=== PATIENT | female | born 1970 | race Two or more races ===

== ENCOUNTER 2017-09-10 17:09 | Emergency (ER) | payer OTHER ==
[2017-09-10 18:04] VITALS: BP 158/100
--- NOTE | 2017-09-10 20:55 | UC ---
Respiratory Complaint HPI - HPI Summary HPI Summary: cough, head congestion and right ear ache began this morning - History of Current Complaint Chief Complaint: UCGeneralIllness Stated Complaint: COUGH, EARACHE, AND CHEST CONGESTION Time Seen by Provider: 09/10/17 20:42 Hx Obtained From: Patient Hx Last Menstrual Period: 09/08/16 ?: No Onset/Duration: Sudden Onset, Lasting Hours - 12 Timing: Constant Severity Initially: Moderate Severity Currently: Moderate Pain Intensity: 9 Character: Cough: Productive Aggravating Factors: Nothing Alleviating Factors: Other - vapor/mist Associated Signs And Symptoms: Positive: URI, Nasal Congestion - Allergies/Home Medications Allergies/Adverse Reactions: Allergies Allergy/AdvReac Type Severity Reaction Status Date / Time MS Eggs or Egg-derived Allergy Nausea And Verified 11/07/14 13:21 Products Vomiting [Eggs or Egg-derived Products] metal Allergy Rash Uncoded 11/07/14 13:21 Home Medications: Home Medications Albuterol HFA INHALER* [Ventolin HFA Inhaler*] 1 puff INH DAILY 09/10/17 [ History Confirmed 09/10/17] Fluticasone NASAL SPRAY 50MCG* [Flonase NASAL SPRAY 50MCG*] 2 spray BOTH NARES DAILY 09/10/17 [History Confirmed 09/10/17] Mometasone 110 MCG MDI * [Asmanex 110 MCG MDI *] 1 puff INH DAILY 09/10/17 [ History Confirmed 09/10/17] PMH/Surg Hx/FS Hx/Imm Hx Previously Healthy: No Respiratory History: Asthma - Surgical History Surgical History: Yes Surgery Procedure, Year, and Place: carpal tunnel 2007 - Family History Known Family History: Positive: None - Social History 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 Lives: With Family Alcohol Use: None Substance Use Type: Marijuana Smoking Status (MU): Never Smoked Tobacco - Immunization History Most Recent Influenza Vaccination: not 2016/2017 Review of Systems Constitutional: Negative Skin: Negative Eyes: Negative ENT: Ear Ache - right Respiratory: Cough Cardiovascular: Negative Gastrointestinal: Negative Genitourinary: Negative Motor: Negative Neurovascular: Negative Musculoskeletal: Negative Neurological: Headache Psychological: Negative Is Patient Immunocompromised?: No All Other Systems Reviewed And Are Negative: Yes Physical Exam Triage Information Reviewed: Yes Appearance: Well-Appearing, No Pain Distress, Well-Nourished Vital Signs: Initial Vital Signs Temp 98.0 F 09/10/17 17:58 Pulse 83 09/10/17 17:58 Resp 18 09/10/17 17:58 BP 158/100 09/10/17 17:58 Pulse Ox 100 09/10/17 17:58 Vital Signs Reviewed: Yes Eye Exam: Normal Eyes: Positive: Conjunctiva Clear ENT Exam: Normal ENT: Positive: Normal ENT inspection, Hearing grossly normal, Pharynx normal, TMs normal, Uvula midline. Negative: Nasal congestion, Nasal drainage, Tonsillar swelling, Tonsillar exudate, Trismus, Muffled voice, Hoarse voice, Dental tenderness, Sinus tenderness Dental Exam: Normal Neck exam: Normal Neck: Positive: Supple, Nontender, No Lymphadenopathy Respiratory Exam: Normal Respiratory: Positive: Chest non-tender, Lungs clear, Normal breath sounds, No respiratory distress, No accessory muscle use Cardiovascular Exam: Normal Cardiovascular: Positive: RRR, No Murmur, Pulses Normal, Brisk Capillary Refill Musculoskeletal Exam: Normal Musculoskeletal: Positive: Strength Intact, ROM Intact, No Edema Neurological Exam: Normal Neurological: Positive: Alert, Muscle Tone Normal Psychological Exam: Normal Skin Exam: Normal UC Diagnostic Evaluation - Laboratory O2 Sat by Pulse Oximetry: 100 Diagnostic Studies Comment: influenza A/B (-) Respiratory Course/Dx - Course Course Of Treatment: tylenol, ibuprofen, mucinex, humidification, increase fluids, follow bp with pcp start antibiodics should symptoms worsen or fail to improve - Differential Dx/Diagnosis Provider Diagnoses: URI Discharge - Discharge Plan Condition: Stable Disposition: HOME Prescriptions: Azithromycin TAB* [Zithromax TAB (Z-GEOVANNY) 250 mg #6 tabs] 2 tab PO .TODAY, THEN 1 DAILY #1 geovanny Patient Education Materials: Upper Respiratory Infection (ED), Hypertension (ED ) Forms: *Work Release Referrals: Rosario Armenta MD [Primary Care Provider] - 1 Week Additional Instructions: 1. I believe the symptoms you are having a caused by a virus . They are best treated with medications like tylenol, ibuprofen and mucinex. If you do not start to feel better in a couple of days or if you feel worse go ahead and start the antibiodic. 2. Your blood pressure to today is a little high---Please get rechecked and follow with your primary care doctor
== END 2017-09-10 21:35 | disposition home or self-care (01) ==
LOC: UCEAST 17:09
DX: J06.9 Acute upper respiratory infection, unspecified (principal); J45.909 Unspecified asthma, uncomplicated
CPT/HCPCS: 87502; 99212; G0463

== ENCOUNTER 2018-02-12 07:15 | Day surgery (SDC) | payer OTHER ==
--- NOTE | 2018-02-01 23:13 | HP ---
CC: Rosario Armenta MD * ADMISSION HISTORY AND PHYSICAL: DATE OF ADMISSION: 02/12/18 - [facility] ATTENDING SURGEON: Tia Hurtado MD * (ERIC Craft, dictating) CHIEF COMPLAINT: Phyllodes tumor, right breast. HISTORY OF PRESENT ILLNESS: This is a 47-year-old female, who underwent routine annual screening mammography on 10/21/17. The patient had not noticed any changes in the breasts and she does do a fairly regular self-exam. She specifically denies any masses, lumps, skin changes, or nipple discharge. The mammogram showed a new rounded density in the right breast, upper, slightly inner quadrant at the 12 to 1 o'clock position, 5 cm from the nipple. This measured up to 0.8 cm in size and was confirmed by ultrasound. An ultrasound- guided biopsy was performed on 10/29/17 showing a benign phyllodes tumor. There is no family history of breast or ovarian cancer. The remainder of her breast history is outlined in her chart record. She was seen in the office by Dr. Hurtado on 01/19/18 at which time, breast exam was normal. There were no skin or nipple changes and no palpable lymphadenopathy. Dr. Hurtado discussed with her the indications for surgery, the risks, benefits, and alternatives and she would like to proceed as scheduled with excision of phyllodes tumor of the right breast (following needle localization). PAST MEDICAL HISTORY: 1. Allergies. 2. Asthma. 3. Obesity. 4. History of iron deficiency anemia. PAST SURGICAL HISTORY: Previous surgeries include: 1. Right carpal tunnel release. 2. Excision of a left ingrown toenail. CURRENT MEDICATIONS: 1. Flonase 1 spray each nostril once daily p.r.n. 2. Asmanex metered dose inhaler 2 puffs b.i.d. 3. Ketotifen ophthalmic drops 0.025% once daily p.r.n. for allergies. 4. Xyzal 5 mg once daily p.r.n. for allergies. 5. Ventolin MDI 2 puffs q.6 hours p.r.n. asthma (has not required recently). 6. Triamcinolone 0.1% cream b.i.d. p.r.n. 7. Ferrous gluconate 325 mg once daily. 8. Vitamin B12 1000 mcg once daily. 9. Multivitamin once daily. ALLERGIES: Drug allergies, IBUPROFEN (GI side effects), BERNARDINO (rash). FAMILY HISTORY: Negative for anesthesia problems, bleeding, or clotting disorders. SOCIAL HISTORY: The patient is , though her is currently in [place]. She has 2 sons, who live with her. 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 She denies use of tobacco, alcohol, or recreational drugs. REVIEW OF SYSTEMS: General: No recent constitutional symptoms or acute illnesses. Her weight has been relatively stable. HEENT: No problems reported. Cardiovascular: No chest pain, palpitations, history of hypertension , or heart murmur. Respiratory: No recent exacerbations of her asthma. No cough or shortness of breath. GI: No problems reported. She has never had a screening colonoscopy. : No problems reported. SUPERINTENDENT METERS: She was evaluated recently by Dr. Armenta for vaginal discharge and was prescribed metronidazole vaginal gel, though has not decided if she is going to use it. Most recent pelvic exam and Pap smear in 2017 reportedly normal. Endocrine: No diabetes or thyroid dysfunction though I did note a hemoglobin A1c of 6.0 on recent lab work. Musculoskeletal: Recent left foot pain and some symptoms consistent with osteoarthritis. Neuro/Psych: She does have a history of claustrophobia. Remaining review of systems is negative. PHYSICAL EXAMINATION GENERAL: Well-nourished, obese female, in no acute distress. VITAL SIGNS: Height 5 feet, 1 inch, weight 194 pounds, blood pressure 118/72, pulse 62, respirations 18. HEENT: Pupils equal and round, reactive. EOMs intact. No conjunctival pallor or scleral icterus. Oropharynx: Teeth in good repair. No intraoral lesions. NECK: No thyromegaly, masses, or supraclavicular lymphadenopathy. LUNGS: Clear to auscultation. No rales or wheezes. HEART: Regular rate and rhythm. No murmur noted. BREASTS: Exam not done today (see above for Dr. Hurtado's exam). ABDOMEN: Soft, nontender to palpation. No palpable masses or organomegaly. GENITALIA: Not done. RECTAL: Not done. BACK: No spinous process or CVA tenderness. EXTREMITIES: No edema. NEUROLOGICAL: Grossly intact. SKIN: Warm and dry. No suspicious rashes or lesions. IMPRESSION: Phyllodes tumor, right breast. PLAN: Excision of phyllodes tumor, right breast (after needle localization). ERIC CRAFT [id number]/[facility] #: [id number] [facility]
[~2018-02-12 07:15] MED LIST: Buffered Lidocaine 0.9% SYRIN* 5 ML/SYR SYRINGE INTRADERM ONE
[2018-02-12] MEDS ORDERED: Lidocaine 2.5%/Prilocain 2.5%* 5 GM TUBE ONE (07:30)
[2018-02-12] MEDS ORDERED: ceFAZolin 2 GM PREMIX (*) 2 GM/50 ML BAG IVPB ONE (07:31)
--- NOTE | 2018-02-12 09:07 | RAD ---
CLINICAL HISTORY: Status post needle wire localization of the right breast COMPARISON: Ultrasound dated October 29, 2017, mammogram dated October 21, 2017 TECHNIQUE: Right craniocaudal and lateral-medial mammograms were obtained. A computer-aided detection system (CAD) was also used for evaluation. FINDINGS: BREAST COMPOSITION: 2 There are scattered areas of fibroglandular density MASSES: Again noted is nodular density of the central/upper right breast. CALCIFICATIONS: There are no suspicious calcifications. ASYMMETRY: There are no suspicious asymmetries. ARCHITECTURAL DISTORTION: There is no architectural distortion. SKIN: There is no skin thickening. LYMPH NODES: There is no lymphadenopathy. SPECIAL CASES: None OTHER FINDINGS: A hook wire is noted, traversing the nodule, with the base of the neck of the wire within the nodule. Images are labeled and marked. ASSESSMENT: STATUS POST ULTRASOUND-GUIDED NEEDLE/WIRE LOCALIZATION OF THE RIGHT BREAST RECOMMENDATION: HISTOLOGY IS PENDING No BIRADS code needed No Code Needed
--- NOTE | 2018-02-12 10:03 | RAD ---
PROCEDURE: Ultrasound-guided needle/wire localization of the right breast PREOPERATIVE DIAGNOSIS: Phyllodes tumor of the right breast POSTOPERATIVE DIAGNOSIS: Same COMPARISONS: October 29, 2017, October 21, 2017 OCCUPATIONAL HEALTH PHYSIOTHERAPIST: Leslie Long MD ANESTHESIA: Local anesthesia with 1% lidocaine without epinephrine FLUOROSCOPY TIME: None CONTRAST: None PROCEDURAL NARRATIVE: The procedure was explained to the patient who indicated understanding. Written and verbal informed consent was obtained. An opportunity was given to ask and answer questions. This included discussing the patient's reported history of metal allergy. It was confirmed that there was no history of anaphylaxis and it was explained that there are no alternative needle/wire localization systems available for use, and that the indwelling wire would be removed the same day during surgery, and that the alternatives would be to do no surgery or nonguided surgery. The patient indicated that she was willing to proceed with the needle/wire localization procedure despite her reported history of metallic allergy. A timeout was performed. The patient was prepped and draped in the usual sterile fashion. Using ultrasound guidance, a needle/wire localization system was advanced to the target lesion in the right breast. Once position was confirmed, the needle was removed using pin pull technique. Post localization mammography was performed. The wound was dressed and the wire was secured. FINDINGS: Again noted is a hypoechoic nodule of the right breast in the approximately 12:00 position corresponding to the findings noted on previous ultrasound. Post localization images demonstrate the hookwire traversing the nodule at the level of the wire neck. SPECIMENS: Pending COMPLICATIONS: None DISPOSITION: The patient tolerated the procedure well, without complications during or immediately following the procedure. The patient was sent to the surgical suite in good, stable condition. IMPRESSION: 1. TECHNICALLY SUCCESSFUL, UNCOMPLICATED, ULTRASOUND-GUIDED LOCALIZATION OF THE RIGHT BREAST FOR THE PURPOSES OF EXCISIONAL BIOPSY. 2. SPECIMEN IS PENDING
[2018-02-12] MEDS ORDERED: fentaNYL* 50 MCG/ML 2 ML VIAL (100 MCG VIAL) ONE (10:47)
[2018-02-12] MEDS ORDERED: Midazolam* 1 MG/ML 5 ML VIAL (5 MG) ONE (10:47)
[2018-02-12] MEDS ORDERED: Bupivacaine 0.5% PF 10 ML VIAL INJ ONE (11:15)
[2018-02-12] MEDS ORDERED: Lidocaine 1% INJ* 10 MG/ML 30 ML SDV ONE (11:15)
[2018-02-12] MEDS ORDERED: Lidocaine 1% MPF wEPI 200,000* 30 ML SDV ONE (11:26)
[2018-02-12] MEDS ORDERED: Propofol* 10 MG/ML 20 ML BTL IV PUSH ONE ×2 (11:49→12:33)
[2018-02-12] MEDS ORDERED: Ondansetron INJ* 2 MG/ML VIAL IV PRN (12:11)
[2018-02-12] MEDS ORDERED: oxyCODONE/Acetamin 5/325 MG* TAB PO PRN (12:11)
[2018-02-12] MEDS ORDERED: Acetaminophen TAB* 325 MG PO PRN (12:11)
[2018-02-12] MEDS ORDERED: Naloxone* 0.4 MG/ML 1 ML VIAL IV PRN (12:11)
[2018-02-12] MEDS ORDERED: HYDROcodone/ACETAMIN 5-325 MG* 1 TAB PO PRN (13:18)
--- NOTE | 2018-02-12 13:25 | BRIEFOPN ---
Brief Operative Note - Surgery Procedures: Procedures ANESTH INJECT-SPIN CANAL (02/24/97) ARTIF RUPT MEMBRANES NEC (03/21/01) EKG (03/21/01) MONITORING NOS (02/24/97) MANUAL REMOVAL-PLACENTA (03/21/01) REPAIR OB LACERATION NEC (03/21/01) 02/12/18 Op Note Pre-op dx: right breast abnormality post-op dx: same Procedure: needle localization of right breast abnormality. Surgeon: Bryant Asst: none Anesth: local-MAC EBL: 25 cc SCDs on during surgery Abx: given pre-op Pt. tolerated procedure well and was transferred to in a stable condition. CLFoster
[2018-02-12 14:10] VITALS: BP 128/88
--- NOTE | 2018-02-15 03:50 | OP ---
CC: Dr. Rosario Armenta.* DATE OF OPERATION: 02/12/18 - SDS DATE OF : 70 SURGEON: Tia Hurtado MD DREDGEMASTER: There was no front office assistant for this case. PRE-OP DIAGNOSIS: Right breast abnormality POST-OP DIAGNOSIS: Right breast abnormality OPERATIVE PROCEDURE: Needle location excision of right breast abnormalities INDICATIONS: Ms. Martini is a 47-year-old woman with recently identified phyllodes tumor in the right breast as identified by ultrasound. She was therefore prepared for surgery. DESCRIPTION OF PROCEDURE: She underwent needle localization on the morning of surgery and then was brought to the operating room. She was placed on the OR table in the supine position and given IV sedation. The right breast was prepped and draped in the usual sterile fashion taking care not to dislodge the localizing wire. After infiltrating with local anesthetic, a curvilinear elliptical incision encompassing the wire was made, subcutaneous tissue was then divided with electrocautery to excise a massive tissue from around the tip of the wire. The specimen was sent to radiology and the report came back eventually that the lesion was at the very edge of the specimen, so additional tissue was taken, this was done after the wound had been irrigated with saline and cauterized extensively. So, once the additional tissue was removed and marked in the usual fashion and handed off as a specimen. Hemostasis was again achieved with electro-cautery. Additional clips were placed in the cavity to master its confluence and then closure was accomplished. This was done with 3-0 Vicryl in the subcutaneous layer. The skin was closed with 4-0 Prolene in the subcuticular fashion. Steri-Strips and a dry sterile dressing were applied. All sponge and instrument counts were correct. The patient tolerated the procedure well and was transferred to Recovery in a stable condition. [id number]/[facility] #: [id number] [facility]
== END 2018-02-12 14:20 | disposition home or self-care (01) ==
LOC: SDS 07:15
PROVIDERS: ATTEND Surgery
DX: D24.1 Benign neoplasm of right breast (principal); J45.909 Unspecified asthma, uncomplicated; J30.2 Other seasonal allergic rhinitis; E66.9 Obesity, unspecified; F41.8 Other specified anxiety disorders
CPT/HCPCS: 77061; 81025; 88307; A9270-GY; G0279; J0690; J2001; J2250; J2704; J3010

== ENCOUNTER 2019-01-06 13:58 | Emergency (ER) | payer OTHER ==
--- NOTE | 2019-01-06 14:06 | UC ---
Respiratory Complaint HPI - HPI Summary HPI Summary: 48 yo female presents with SOB and chest pressure. She tells me that 1 week ago she started noticing shortness of breath throughout the day that was worse during activities. She has a history of asthma and seasonal allergies, thus attributed her symptoms to those. She saw her PCP on 01/03 and was prescribed prednisone for suspect asthma exacerbation/allergies per pt. She has been taking the prednisone as prescribed since that time with no change in her symptoms. She continues to have AMADOR with associated sternal chest pressure. She does not have dizziness, headache, abdominal pain, n/v with this. Denies sinus symptoms or cough. She denies any cardiac history in herself. Fam hx both parents with CAD and HLD. She does not smoke. Of note, she did travel via car to [place] about 4-5 days before her symptoms began. She is not having any calf pain. - History of Current Complaint Stated Complaint: SOB Time Seen by Provider: 01/06/19 14:05 Hx Obtained From: Patient Hx Last Menstrual Period: 09/08/16 Severity Initially: Mild Severity Currently: Mild Pain Intensity: 3 Pain Scale Used: 0-10 Numeric - Allergies/Home Medications Allergies/Adverse Reactions: Allergies Allergy/AdvReac Type Severity Reaction Status Date / Time ibuprofen Allergy Intermediate Nausea Verified 01/06/19 14:23 latex Allergy Intermediate Rash Verified 01/06/19 14:23 eggs Allergy Severe Nausea And Uncoded 01/06/19 14:23 Vomiting metal Allergy Severe Rash Uncoded 01/06/19 14:23 Home Medications: Home Medications Loratadine [Claritin 10 MG CAP] 10 mg PO DAILY 01/06/19 [History Confirmed 01/06] predniSONE [Prednisone 5 MG TAB] 30 mg PO DAILY 01/06/19 [History Confirmed ] PMH/Surg Hx/FS Hx/Imm Hx - Additional Past Medical History Additional PMH: Allergies Respiratory History: Asthma - Surgical History Surgical History: Yes Surgery Procedure, Year, and Place: carpal tunnel right hand 2007. ingrown toenail in left foot - Family History Known Family History: Positive: Cardiac Disease, Hypertension, Respiratory Disease - Social History Occupation: Employed Full-time Lives: With Family Alcohol Use: None Substance Use Type: None Smoking Status (MU): Never Smoked Tobacco Have You Smoked in the Last Year: No - Immunization History Most Recent Influenza Vaccination: not 2016/2017 Review of Systems All Other Systems Reviewed And Are Negative: Yes Constitutional: Positive: Negative Skin: Positive: Negative Eyes: Positive: Negative ENT: Positive: Negative Respiratory: Positive: Shortness Of Breath Cardiovascular: Positive: Chest Pain Gastrointestinal: Positive: Negative Genitourinary: Positive: Negative Neurovascular: Positive: Negative Musculoskeletal: Positive: Negative Neurological: Positive: Negative Psychological: Positive: Negative Physical Exam - Summary Physical Exam Summary: GENERAL: NAD. WDWN. No pain distress. SKIN: No rashes, sores, or open wounds. HEENT: Head: AT/NC Eyes: PERRLA. EOM intact. Conjunctiva clear without inflammation or discharge. Ears: Hearing grossly normal. TMs intact, no bulging, erythema, or edema. Nose: Nasal mucosa pink and moist. NTTP maxillary and frontal sinus. Throat: Posterior oropharynx without exudates, erythema, or tonsillar enlargement. Uvula midline. NECK: Supple. Nontender. No lymphadenopathy. CHEST: CTAB. No r/r/w. No accessory muscle use. Breathing comfortably and in no distress. CV: RRR. Without m/r/g. Pulses intact. Brisk cap refill. ABDOMEN: Soft. NTTP. No distention or guarding. Bowel sounds present NEURO: Alert. PSYCH: Age appropriate behavior. Triage Information Reviewed: Yes Vital Signs: Vital Signs: Temp Pulse Resp BP Pulse Ox 98.2 F 97 16 152/93 100 01/06/19 14:01/06/19 14:01/06/19 14:09 01/06/19 14:01/06/19 14:09 Vital Signs Reviewed: Yes Respiratory Course/Dx - Course Course Of Treatment: EKG: NSR 86bpm No ST changes as read by Dr. Mcintyre. Her exam is WNL and I do not appreciate any respiratory wheezing or indications to support an asthma exacerbation or seasonal allergies. I am most concerned for an underlying cardiac etiology given her AMADOR and chest pressure - therefore I recommended pt go to the ED for further evaluation. She was agreeable to this and her co-worker with her will drive her. She was given 325mg ASA in the clinic upon discharge. - Differential Dx/Diagnosis Provider Diagnosis: AMADOR (dyspnea on exertion), Chest pressure Discharge - Sign-Out/Discharge Documenting (check all that apply): Patient Departure All imaging exams completed and their final reports reviewed: No Studies - Discharge Plan Condition: Stable Disposition: HOME-RECOMMEND TO ED Referrals: Rosario Armenta MD [Primary Care Provider] - Additional Instructions: Please go directly to the [facility] ER for further evaluation of your shortness of breath on exertion and chest pressure. You were given 325mg of aspirin in the Urgent Care . - Billing Disposition and Condition Condition: STABLE Disposition: Home-Recommend to ED
--- OUTSIDE RECORDS SUMMARY | 2019-01-06 14:07 | XMS REPORT | Continuity of Care Document ---
:1970 External Reference #:[id number] Author Name Peter Small Care Team Providers Name Role Phone Rosario Armenta MD Primary Care Physician Unavailable Payers Date Identification Numbers Payment Provider Subscriber Policy Number: [id number] Arcadio Gomezg PayID: [id number] [address] [place] [address] Effective: 2015 Policy Number: [id number] [employer] Arias Martini Expires: 2018 PayID: [id number] [address] [address] [place] [address] Expires: 2013 Policy Number: [id number] [facility] Alok Martini PayID: [id number] [address] [place] [address] Onset: 2018 Policy Number: [id number] [facility] Arias Martini Group Number: [id number]. [id number] [address] PayID: [id number] [place] [address] Problems Active Problems Provider Date Allergic rhinitis Jing Saha N.PSuhas Onset: 12/08/2013 Obesity Rosario Armenta M.D. Onset: 12/04/2014 Impaired fasting glycaemia Rosario Armenta M.D. Onset: 07/16/2016 Low serum ferritin Rosario Armenta M.D. Onset: 08/18/2016 Iron deficiency anemia Rosario Armenta M.D. Onset: 08/18/2016 Moderate persistent asthma Rosario Armenta M.D. Onset: 12/03/2016 Trochanteric bursitis Samantha Diego, M.D. Onset: 12/14/2017 Localized, primary osteoarthritis of the Samantha Cortez M.D. 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 ETOH Use Denies alcohol use Tobacco Use Start: Unknown Patient has never smoked Recreational Drug Use Denies Drug Use Smoking Status Reviewed: 01/03/19 Patient has never smoked Exercise Type/Frequency Exercises sporadically walks at school , takes stairs Allergies, Adverse Reactions, Alerts Active Allergies Reaction Severity Comments Date Ibuprofen More than 1 qd-nausea 09/25/2009 Eggs 09/25/2009 [place] 10/26/2017 Banana Extract 01/19/2018 Latex Urticaria band-aid 01/19/2018 Metals rash 01/19/2018 Lettuce 01/19/2018 Chloraprep One-Step rash 02/15/2018 Medications Active Medications SIG Qnty Indications Ordering Date Provider Prednisone 4 tab daily X 3 QS J45.41 Rosario Armenta, 01/03/2019 10mg Tablets day then 3 tab M.D. daily x 3 days and then 2 tab daily x 3 days 1 tab daily x 3 days Asmanex HFA 2 puff bid Rosario Armenta, 08/23/2018 100mcg/Act M.D. Aerosol Ventolin HFA inhale 2 puffs 8.5units Rosario Armenta, 05/19/2017 by mouth four M.D. 108(90Base) mcg/Act times a day as Aerosol needed Triamcinolone now prn---apply 30gm M54.5 Jing Saha, 07/02/2015 Acetonide twice a day N.P. 0.1% Cream until clear Multi Complete daily Unknown Capsules B12 daily Unknown 1000mcg Tablets Dispers Ferrous Gluconate 1 by mouth every Unknown day 324(37.5Fe) mg Tablets KP Ketotifen Fumarate instill 1 drop Unknown In Affected 0.025% Solution Eye(S) Twice Daily as Needed Claritin 1 by mouth every Unknown 10mg Capsules day History Medications Hydrocodone-Acetaminophen 1 or 2 tablets by 14tabs Tia Sood 02/01/2018 - 5-325mg mouth every 4-6 MD Bryant 02/16/2018 Tablets hours as needed for moderately severe pain Metronidazole apply 1units [facility] 01/21/2018 - 0.75% Gel intravaginally Odalys Armenta Unknown once a day x 7 days Meloxicam take 1 tab by 14taalbert M25. Samantha 11/16/2017 - 15mg Tablets mouth with food 552 Odalys Cortez 01/21/2018 once a day prn Mometasone Furoate 1 squirt each [facility] 05/19/2017 - 50mcg/Act Suspension nostril once a day Odalys Armenta 01/03/2019 prn Nitrofurantoin Monohyd Macro 1 tab twice a day 14caps [facility] 01/15/2017 - 100mg x 7 days Odalys Armenta 05/18/2017 Capsules Xyzal 5mg 1 by mouth every 30tabs [facility] 11/18/2016 - Tablets day as needed Odalys Armenta 01/03/2019 Ciprofloxacin HCL one by mouth twice 14tabs N39. Jing 06/27/2016 - 250mg Tablets a day for 7 days 0 Varn, N.P. 07/04/2016 Phenazopyridine HCL 1 tablet by mouth 9tabs N39. Jing 06/27/2016 - 100mg Tablets three times a day 0 Varn, N.P. 07/16/2016 as needed Ventolin HFA inhale 2 puffs by 8.5units [facility] 06/03/2016 - 108(90Base) mcg/Act mouth four times a Odalys Armenta 05/18/2017 Aerosol day as needed Xyzal 5mg 1 by mouth every 30tabs [employer] 2015 - Tablets day Varn, N.P. 06/27/2016 Tramadol HCL 1 tablet three to 30tabs M54. [employer] 01/18/2016 - 50mg Tablets four times daily 5 Varn, N.P. 06/27/2016 as needed Maura Allergy 1 by mouth every 90tabs Rosario 12/12/2015 - 180mg Tablets day as needed for Odalys Armenta 02/20/2016 allergies Medrol (Lei) as directed 1Pak M54. Jing 08/08/2015 - 4mg Tablets 5 Varn, N.P. 08/18/2015 Tramadol HCL 1 tablet three to 30tabs M54. Jing 07/02/2015 - 50mg Tablets four times daily 5 Varn, N.P. 01/18/2016 as needed Metaxalone take 1 tablet 3 30tabs M54. Jing 07/02/2015 - 800mg Tablets times a day as 5 Varn, N.P. 01/18/2016 needed Ventolin HFA inhale 2 puffs by 1units 786. [facility] 12/04/2014 - 108(90Base) mcg/Act mouth four times a 2 Odalys Armenta 01/18/2016 Aerosol day as needed Montelukast Sodium once a day 90tabs 477. Rosario 12/04/2014 - 10mg Tablets 9 Odalys Armenta 12/15/2014 Prednisone take 3 tab daily x QS 786. Rosario 12/04/2014 - 10mg Tablets 2 days then 2 tab 2 Odalys Armenta 12/15/2014 daily x 3 days and then 1 tab daily X 2 days Meclizine HCL take one tablet 30tabs 780. Malcolm Ng 04/14/2014 - 25mg Tablets every 6 hours as 4 [employer] DIRECT[employer] 12/04/2014 needed for dizziness Cephalexin 1 by mouth three 21caps 681. Jing 12/23/2013 - 500mg Capsules times a day for 7 11 Varn, N.P. 12/30/2013 days Patanol 1 drop both eyes 5units Rosario 12/08/2013 - 0.1% Solution every day as Odalys Armenta 05/18/2017 needed allergies Fluticasone Propionate 1 spray in each 16units Rosario 12/08/2013 - 50mcg/Act nostril daily as Odalys Armenta 06/27/2016 Suspension needed Triamcinolone Acetonide apply twice a day 30gm 782. Jing 12/08/2013 - 0.1% Cream until clear 1 Varn, N.P. 12/22/2013 Clarinex take one tablet by 30tabs 477. Rosario 12/08/2013 - 5mg Tablets mouth every day as Hortensia Armenta M.D. 01/18/2016 needed No Active Medications Unknown 12/08/2013 - 12/08/2013 Mometasone Furoate 2 puffs inhaled Unknown - Aerosol bid 10/26/2017 Symbicort 2 puff inhaled Unknown - 160-4.5mcg/Act Aerosol twice a day 05/18/2017 Asmanex HFA once aday Unknown - 200mcg/Act Aerosol 06/23/2017 Asmanex HFA 2 puff bid Unknown - 100mcg/Act Aerosol 08/23/2018 Biotin 2 tab daily otc Unknown - 5000mcg Capsules Unknown Medications Administered in Office Medication SIG Qnty Indications Ordering Provider Date Td(Adult),Unspecified Unknown 02/26/2015 Injection Immunizations CPT Code Status Date Vaccine Reaction Lot # [id number] Given 05/10/2016 Influ Virus Vaccine, no reaction, pt [id number] Quadrivalent, Split Virus, [place] [address] Given 06/07/2014 Flu Vaccine Split Virus [id number] Preservative Free For Indiv 3Yr Older 19745 Given 03/18/2007 Hepatitis B Vaccine Adult Dosage 73947 Given 02/02/2007 Hepatitis B Vaccine Adult Dosage 90604 Given 02/02/2007 Hepatitis A Vaccine Adult Dosage 45326 Given 02/02/2007 Hepatitis A Vaccine Adult Dosage Vital Signs Date Vital Result Comment 01/03/2019 8:18am Height 60.75 inches 5'0.75" Weight 205.00 lb Heart Rate 85 /min BP Systolic Sitting 149 mmHg BP Diastolic Sitting 84 mmHg O2 % BldC Oximetry 100 % BMI (Body Mass Index) 39.0 kg/m2 08/23/2018 10:23am Weight 201.00 lb Heart Rate 92 /min BP Systolic Sitting 120 mmHg BP Diastolic Sitting 80 mmHg Pain Level 5 O2 % BldC Oximetry 98 % 06/16/2018 9:03am Heart Rate 80 /min BP Systolic 117 mmHg BP Diastolic 66 mmHg Respiratory Rate 16 /min Body Temperature 98.3 F 02/23/2018 2:03pm Heart Rate 96 /min Respiratory Rate 18 /min Body Temperature 97.5 F 02/18/2018 11:54am Heart Rate 72 /min BP Systolic 122 mmHg BP Diastolic 80 mmHg Respiratory Rate 16 /min Body Temperature 97.9 F 02/17/2018 1:20pm Height 60.75 inches 5'0.75" Weight 195.00 lb Heart Rate 71 /min Respiratory Rate 15 /min Pain Level 0 BMI (Body Mass Index) 37.1 kg/m2 02/01/2018 11:24am Height 60.75 inches 5'0.75" Weight 194.00 lb Heart Rate 62 /min BP Systolic 118 mmHg BP Diastolic 72 mmHg Respiratory Rate 18 /min Body Temperature 98.2 F BMI (Body Mass Index) 37.0 kg/m2 01/21/2018 8:49am Height 60.75 inches 5'0.75" Weight 196.00 lb Heart Rate 78 /min BP Systolic Sitting 110 mmHg BP Diastolic Sitting 60 mmHg O2 % BldC Oximetry 98 % BMI (Body Mass Index) 37.3 kg/m2 01/19/2018 2:20pm Heart Rate 92 /min BP Systolic Sitting 122 mmHg BP Diastolic Sitting 84 mmHg Respiratory Rate 18 /min Body Temperature 98.3 F 12/18/2017 2:08pm Height 60.75 inches 5'0.75" Weight 194.00 lb Heart Rate 69 /min Respiratory Rate 17 /min Pain Level 2 BMI (Body Mass Index) 37.0 kg/m2 12/14/2017 2:30pm Height 60.75 inches 5'0.75" Weight 194.00 lb Heart Rate 64 /min irregular BP Systolic 118 mmHg BP Diastolic 90 mmHg BMI (Body Mass Index) 37.0 kg/m2 11/27/2017 11:25am Height 60.75 inches 5'0.75" Weight 194.00 lb Heart Rate 76 /min BP Systolic 112 mmHg BP Diastolic 70 mmHg Respiratory Rate 12 /min Pain Level 8 BMI (Body Mass Index) 37.0 kg/m2 11/18/2017 1:53pm Height 60.75 inches 5'0.75" Heart Rate 84 /min BP Systolic 132 mmHg BP Diastolic 78 mmHg Respiratory Rate 16 /min Body Temperature 97.8 F Pain Level 9 11/16/2017 2:37pm Height 60.75 inches 5'0.75" Weight 194.00 lb Heart Rate 88 /min BP Systolic 118 mmHg BP Diastolic 76 mmHg BMI (Body Mass Index) 37.0 kg/m2 10/26/2017 2:23pm Height 60.25 inches Weight 197.00 lb Heart Rate 89 /min BP Systolic 118 mmHg 80 Body Temperature 98.3 F O2 % BldC Oximetry 97 % BMI (Body Mass Index) 38.2 kg/m2 05/19/2017 11:44am Weight 199.00 lb Heart Rate 72 /min BP Systolic Sitting 130 mmHg BP Diastolic Sitting 83 mmHg Respiratory Rate 18 /min Body Temperature 97.4 F Pain Level 0 burning sensation in throat O2 % BldC Oximetry 98 % 08/18/2016 7:51am Height 61 inches 5'1" Weight 197.00 lb Heart Rate 87 /min BP Systolic 120 mmHg BP Diastolic 76 mmHg Body Temperature 97.9 F O2 % BldC Oximetry 87 % BMI (Body Mass Index) 37.2 kg/m2 07/16/2016 11:03am Height 61 inches 5'1" Weight 197.00 lb Heart Rate 88 /min BP Systolic Sitting 118 mmHg BP Diastolic Sitting 84 mmHg O2 % BldC Oximetry 99 % BMI (Body Mass Index) 37.2 kg/m2 06/27/2016 11:27am Weight 200.00 lb with shoes Heart Rate 133 /min BP Systolic Sitting 110 mmHg BP Diastolic Sitting 84 mmHg Body Temperature 97.3 F O2 % BldC Oximetry 99 % 01/18/2016 9:49am Weight 198.00 lb Heart Rate 88 /min BP Systolic Sitting 102 mmHg BP Diastolic Sitting 70 mmHg Body Temperature 97.7 F O2 % BldC Oximetry 99 % 10/22/2015 10:24am Weight 197.00 lb Heart Rate 64 /min BP Systolic Sitting 122 mmHg BP Diastolic Sitting 80 mmHg Respiratory Rate 15 /min Body Temperature 98.0 F O2 % BldC Oximetry 99 % 08/08/2015 4:24pm Heart Rate 79 /min BP Systolic Sitting 137 mmHg BP Diastolic Sitting 89 mmHg Body Temperature 98.4 F Pain Level 10 O2 % BldC Oximetry 98 % 07/02/2015 10:56am Weight 195.25 lb Heart Rate 67 /min BP Systolic Sitting 130 mmHg BP Diastolic Sitting 91 mmHg Body Temperature 97.0 F Pain Level 6 O2 % BldC Oximetry 99 % 12/04/2014 10:02am Weight 197.00 lb Heart Rate 73 /min BP Systolic Sitting 120 mmHg BP Diastolic Sitting 78 mmHg Body Temperature 98.3 F O2 % BldC Oximetry 100 % 11/07/2014 10:52am Weight 197.00 lb Heart Rate 82 /min BP Systolic Sitting 114 mmHg BP Diastolic Sitting 72 mmHg Body Temperature 98.5 F O2 % BldC Oximetry 98 % 04/14/2014 2:31pm Weight 202.00 lb Heart Rate 100 /min BP Systolic Sitting 118 mmHg BP Diastolic Sitting 74 mmHg Body Temperature 98.6 F 12/23/2013 1:42pm Weight 201.00 lb Heart Rate 72 /min BP Systolic Sitting 120 mmHg BP Diastolic Sitting 76 mmHg 12/08/2013 11:04am Height 60.5 inches 5'0.50" Weight 199.00 lb Heart Rate 93 /min BP Systolic 112 mmHg BP Diastolic 82 mmHg Body Temperature 99.5 F O2 % BldC Oximetry 99 % BMI (Body Mass Index) 38.2 kg/m2 Results Test Date Facility Test Result H/L Range Note Laboratory test 02/12/2018 [facility] Surgical SEE RESULT [address] [place] [address] [phone] Laboratory test 01/21/2018 [facility] Gardnerella/Yea SEE RESULT [address]: [place] [address] [phone] Laboratory test 10/29/2017 [facility] Surgical SEE RESULT 3 , [address] [place] [address] [phone] CBC Auto Diff 10/20/2017 [facility] White Blood 8.0 10^3/uL N 3.5-10.[address] [place] [address] [phone] Red Blood Count 4.31 10^6/uL N 4.0-5.4 Hemoglobin 12.0 g/dL N 12.0-16.0 Hematocrit 36 % N 35-47 Mean Corpuscular Volume 85 fL N 80-97 Mean Corpuscular Hemoglobin 28 pg N 27-31 Mean Corpuscular HGB Conc 33 g/dL N 31-36 Red Cell Distribution Width 13 % N 10.5-15 Platelet Count 310 10^3/uL N 150-450 Mean Platelet Volume 8.4 um3 N 7.4-10.4 Abs Neutrophils 5.0 10^3/uL N 1.5-7.7 Abs Lymphocytes 2.4 10^3/uL N 1.0-4.8 Abs Monocytes 0.4 10^3/uL N 0-0.8 Abs Eosinophils 0.2 10^3/uL N 0-0.6 Abs Basophils 0.1 10^3/uL N 0-0.2 Abs Nucleated RBC 0 10^3/uL Granulocyte % 62.2 % N 38-83 Lymphocyte % 29.5 % N 25-47 Monocyte % 5.0 % N 0-7 Eosinophil % 2.6 % N 0-6 Basophil % 0.7 % N 0-2 Nucleated Red Blood Cells % 0 Basic Metabolic 10/20/2017 [facility] Sodium 136 mmol/L Low 139-[address] [place] [address] [phone] Potassium 4.1 mmol/L N 3.5-5.0 Chloride 102 mmol/L N 101-111 Co2 Carbon Dioxide 27 mmol/L N 22-32 Anion Gap 7 mmol/L N 2-11 Glucose 118 mg/dL High 70-100 Blood Urea Nitrogen 11 mg/dL N 6-24 Creatinine 0.72 mg/dL N 0.51-0.95 BUN/Creatinine Ratio 15.3 N 8-20 Calcium 9.7 mg/dL N 8.6-10.3 Egfr Non- 87.2 >60 Egfr 112.1 >60 5 Laboratory test 10/20/2017 [facility] Hemoglobin A1c 6.0 % High 4.0-5.[address] (Glyco HGB) [place] [address] [phone] Rapid Influenza 09/10/2017 [facility] Influenza A NEGATIVE Negative 7 A & B Molecular [address] [place] [address] [phone] Influenza B Molecular NEGATIVE Negative Urine Culture And 01/15/2017 [facility] Urine Culture SEE RESULT [address] [place] [address] [phone] Urinalysis Profile 01/15/2017 [facility] Urine Color Yellow [place] [address] [place] [address] [phone] Urine Appearance Cloudy N Urine Specific Hamler 1.010 N 1.010-1.030 Urine pH 5.0 N 5-9 Urine Urobilinogen Negative N Negative Urine Ketones Negative N Negative Urine Protein Negative N Negative Urine Leukocytes 2+ Abnormal Negative Urine Blood Negative N Negative * * Abnormal Negative 9 Urine Nitrite Negative N Negative Urine Bilirubin Negative N Negative Urine Glucose Negative N Negative Urine White Blood Cell 1+(6-10/hpf) Abnormal Absent Urine Red Blood Cell Absent N Absent Urine Bacteria Absent N Absent Urine Squamous Epithelial Cell Present Abnormal Absent Laboratory test 08/11/2016 [facility] Ferritin < 10.0 ng/mL Low 11-307 [address] [place] [address] [phone] Vitamin B12 205 pg/mL N 180-914 10 Iron & Iron Binding 08/11/2016 [facility] Iron 68 g/dL N 50- [address] [place] [address] [phone] Unsaturated Iron Binding 409 g/dL N Total Iron Binding Capacity 477 g/dL High 250-450 % Iron Saturation 14 % Low 15-55 Laboratory test 08/11/2016 [facility] Glucose 111 mg/dL High 70-100 finding [address] [place] [address] [phone] Hemoglobin A1c (Glyco HGB) 6.0 % N Less than 6.0 11 Laboratory test 07/16/2016 [facility] Cytology SEE RESULT BELOW 12 finding [address] [place] [address] [phone] HPV Rna Ww/Reflex Genotype Negative N Negative 13 CBC Auto Diff 07/08/2016 [facility] White Blood 7.3 10^3/uL N 3.5-10.8 [address] [facility] [place] [place] [address] [phone] Red Blood Count 4.03 10^6/uL N 4.0-5.4 Hemoglobin 11.2 g/dL Low 12.0-16.0 Hematocrit 34 % Low 35-47 Mean Corpuscular Volume 84 fL N 80-97 Mean Corpuscular Hemoglobin 28 pg N 27-31 Mean Corpuscular HGB Conc 33 g/dL N 31-36 Red Cell Distribution Width 13 % N 10.5-15 Platelet Count 302 10^3/uL N 150-450 Mean Platelet Volume 8 um3 N 7.4-10.4 Abs Neutrophils 4.0 10^3/uL N 1.5-7.7 Abs Lymphocytes 2.6 10^3/uL N 1.0-4.8 Abs Monocytes 0.4 10^3/uL N 0-0.8 Abs Eosinophils 0.2 10^3/uL N 0-0.6 Abs Basophils 0 10^3/uL N 0-0.2 Abs Nucleated RBC 0 10^3/uL N Granulocyte % 55.3 % N 38-83 Lymphocyte % 35.5 % N 25-47 Monocyte % 5.8 % N 1-9 Eosinophil % 2.9 % N 0-6 Basophil % 0.5 % N 0-2 Nucleated Red Blood Cells % 0 N Laboratory test 07/08/2016 [facility] TSH (Thyroid 2.00 mcIU/mL N 0.34-5.60 [address] Stim [place]) [place] [address] [phone] Comp Metabolic 07/08/2016 [facility] Sodium 136 mmol/L N 133- 145 Panel [address] [place] [address] [phone] Potassium 4.2 mmol/L N 3.5-5.0 Chloride 104 mmol/L N 101-111 Co2 Carbon Dioxide 26 mmol/L N 22-32 Anion Gap 6 mmol/L N 2-11 Glucose 133 mg/dL High 70-100 Blood Urea Nitrogen 11 mg/dL N 6-24 Creatinine 0.73 mg/dL N 0.51-0.95 BUN/Creatinine Ratio 15.1 N 8-20 Calcium 9.2 mg/dL N 8.6-10.3 Total Protein 7.3 g/dL N 6.4-8.9 Albumin 4.0 g/dL N 3.2-5.2 Globulin 3.3 g/dL N 2-4 Albumin/Globulin Ratio 1.2 N 1-3 Total Bilirubin 0.50 mg/dL N 0.2-1.0 Alkaline Phosphatase 81 U/L N 34-104 Alt 22 U/L N 7-52 Ast 22 U/L N 13-39 Egfr Non- 86.2 N >60 Egfr 110.9 N >60 15 Lipid Profile 07/08/2016 [facility] Triglycerides 79 mg/dL N 16 (Trig/Chol/HDL) [address] [place] [address] [phone] Cholesterol 185 mg/dL N 17 HDL Cholesterol 53.1 mg/dL N 18 LDL Cholesterol 116 mg/dL N 19 Ua Routine 06/27/2016 [facility] [employer] [facility] Ua Specific Hamler 1.015 Ua PH 5 Ua Color yellow Ua Appera cloudy Ua WBC trace Ua Protein -- Ua Glucose -- Ua Ketones -- Ua Bilirubin -- Ua Urobilinogen normal Ua Nitrite -- Ua Occult Blood ++ Urine Culture And 06/27/2016 [facility] Urine Culture SEE RESULT [address] [place] [address] [phone] Laboratory test 11/07/2014 [facility] B Type 30 pg/mL N [address] [place] [address] Peptide [phone] 1 SEE RESULT BELOW Name: ARIAS MARTINI : [address]: Tia Hurtado MD Acct: [id number] Unit: [id number] AGE: 47 Location: [facility] Re02/12/18 SEX: F [place] [facility] [place]C: [id number] CAMELIA: 02/12/18-1220 [facility] DR: Tia Hurtado MD REQ: [id number] RECD: 02/12/18-1242 STATUS: SOUT _ ORDERED: LEVEL 5/2 FINAL DIAGNOSIS 1. Breast, right, needle localization excision: -- Fibroadenoma (9 mm). -- Benign breast tissue. -- No evidence of neoplasia identified. 2. Breasts, right, posterior lateral to first specimen, excision: -- Benign breast tissue. -- No evidence of neoplasia identified. PRE-OPERATIVE DIAGNOSIS Abnormal and inconclusive findings on diagnostic imaging of breast, 1) usual markings, 2) usual markings GROSS DESCRIPTION 1. The specimen is received fresh labeled, Right Breast Tissue, and consists of an 11.0 x 7.7 x 3.5 cm yellow ovoid portion of fibrofatty soft tissue with three attached sutures which are designated as follows: long-lateral, short-superior and medium- medial. The specimen is partially surfaced by a 2.9 x 0.9 cm simpson wrinkled skin ellipse on the superior medial aspect. There is a needle localization wire exiting the specimen from the deep lateral aspect. There is a 0.9 x 0.9 x 0.8 cm simpson-white well-defined rubbery whorled lesion within the mid to lateral specimen associated with the localization wire, 0.1 cm from the deep margin. The remaining cut surface consists predominantly of yellow lobulated adipose tissue with a small amount of interspersed simpson-white fibrous tissue. The specimen is inked as follows: superior anterior-blue, inferior anterior-green and deep-black, serially sectioned from lateral to medial and artist's representative sections are submitted in cassettes A through J to include lesion in cassettes C through E. CONTINUED ON NEXT PAGE DEPARTMENT OF PATHOLOGY, [address] [place] [address] Mahamed Sharpe M.D. Director [facility] # [id number] RUN DATE: 02/16/18 [facility] LAB LIVE PAGE 2 Patient: ARIAS MARTINI [id number] (Continued) GROSS DESCRIPTION (Continued) GROSS DESCRIPTION (Continued) 2. The specimen is received in formalin labeled, Additional Right Breast Tissue Posterio-Lateral to the First Specimen, Usual Markings, and consists of an 8.8 x 5.5 x 2.0 cm yellow ovoid portion of fibrofatty soft tissue with three attached sutures which are designated as follows: long-lateral, short-superior and medium-medial. The medial specimen is focally cauterized and presumed the false margin; the lateral surface is designated the true margin. The cut surface consists predominantly of yellow lobulated adipose tissue with scant interspersed focally dense simpson-white fibrous tissue. A discrete lesion is not identified. The specimen is inked as follows: lateral half-blue and medial half-green, serially sectioned from superior to inferior and artist's representative sections are submitted in cassettes A through J. Signed by and Reported on: Mahamed Sharpe MD [id number] END OF REPORT DEPARTMENT OF PATHOLOGY, [address] [place] [address] Mahamed Sharpe M.D. Director [facility] # [id number] 2 SEE RESULT BELOW Name: ARIAS MARTINI : [address]: Rosario Armenta MD Acct: [id number] Unit: [id number] AGE: 47 Location: [facility] Re01/21/18 SEX: F Status: REG REF SPEC: [id number] CAMELIA: 01/21/18-[address]: Rosario Armenta MD REQ: [id number] RECD: 01/21/18 STATUS: COMP _ SOURCE: VAGINAL SPDESC: ORDERED: Sixto,Yeast DNA COMMENTS: [id number] Would you like to order Trichomonas Vaginalis testing? N Procedure Result Reported Site Gardnerella/Yeast: Vaginal DNA Final 01/21/18- 1503 ML Organism 1 POSITIVE GARDNERELLA Organism 2 Negative Daniela The presence of G. vaginalis, although suggestive, is not diagnostic for bacterial vaginosis. Results should be interpreted in conjuction with other clinical and laboratory data available. Women with vaginal discharge should be evaluated for risk factors of cervicitis and pelvic inflammatory disease, toxic shock syndrome (S.aureus), and if present, evaluated for organisms not included in this assay such as N. gonorrhoeae, C. trachomatis, Mobiluncus, Mycoplasma and/or Prevotella. Mixed infections may occur. The performance of this test on patient specimens collected during or immediately after antimicrobial therapy is unknown. The presence or absence of Daniela species, or G. vaginalis cannot be used as a test for therapeutic success or failure. * ML - Main Lab . END OF REPORT DEPARTMENT OF PATHOLOGY, [address] [place] [address] Mahamed Sharpe M.D. Director [facility] # [id number] 3 [id number] SEE RESULT BELOW Name: ARIAS MARTINI : [address]: Jing Saha NP Acct: [id number] Unit: [id number] AGE: 46 Location: [facility] Re10/29/17 SEX: F Status: REG REF SPEC: [id number] CAMELIA: 10/29/17 [facility] DR: Milvia Kumar MD REQ: [id number] RECD: 10/29/17 STATUS: TANYA BUSTILLO DR: Rosario Armenta MD _ ORDERED: LEVEL 4 COMMENTS: [id number] FINAL DIAGNOSIS Breast, right, 12:00, 5 cm from nipple, core biopsy: -- Benign Phyllodes tumor. -- No evidence of invasive or in situ carcinoma. COMMENT: Clinical and radiologic correlation is recommended. PRE-OPERATIVE DIAGNOSIS Right breast mass at 12:00, 5 cm from nipple 0.7 x 0.7 x 0.7 cm. GROSS DESCRIPTION The specimen is received in formalin labeled, Right Breast Core Biopsies, and consists of a 2.0 x 0.7 x 0.2 cm aggregate of yellow-pink irregular to cylindrical fibrofatty soft tissue fragments which is submitted entirely in one cassette. Signed (signature on file) Yvrose Moraes MD 01/11 1005 END OF REPORT DEPARTMENT OF PATHOLOGY, [address] [place] [address] Mahamed Sharpe M.D. Director [facility] # [id number] 5 Because ethnic data is not always readily available, this report includes an eGFR for both -Americans and non- Americans. The National Kidney Disease Education Program (NKDEP) does not endorse the use of the MDRD equation for patients that are not between the ages of 18 and 70, are , have extremes of body size, muscle mass, or nutritional status, or are non- or non-. According to the National Kidney Foundation, irrespective of diagnosis, the stage of the disease is based on the level of kidney function: Stage Description GFR(mL/min/1.73 m(2)) 1 Kidney damage with normal or decreased GFR 90 2 Kidney damage with mild decrease in GFR 60-89 3 Moderate decrease in GFR 30-59 4 Severe decrease in GFR 15-29 5 Kidney failure <15 (or dialysis) 6 Therapeutic target for the treatment of diabetes mellitus patients is <7% HBA1C, and in selective patients <6.0%. Please refer to [place] Diabetes Association diabetic care guidelines for further information. 7 Photogrammetrist: [id number] 8 SEE RESULT BELOW Name: ARIAS MARTINI : [address]: Rosario Armenta MD Acct: [id number] Unit: [id number] AGE: 46 Location: [facility] Re01/15/17 SEX: F Status: REG REF SPEC: [id number] [place]: 01/15/17-8301 [facility] DR: Rosario Armenta MD REQ: [id number] RECD: 01/15/17-7894 STATUS: COMP _ SOURCE: URINE SPDESC: ORDERED: Urine Culture Procedure Result Reported Site Urine Culture Final 01/17/17- 917 ML Organism 1 STREP GROUP B [place] Count 1-10,000 (Few) CFU/ML Organism 2 NORMAL PUSHPA [place] Count >100,000 (Many) CFU/ML Susceptibility testing of penicillins and other B-lactams approved by FDA for treatment of Streptococcus pyogenes (Group A Strep) and Streptococcus agalactiae (Group B Strep) is not necessary for clinical purposes and need not be done routinely, since as with vancomycin, resistant strains have not been recognized. (CLSI J659-R96;p.66) Positive isolates will be saved for one week. Please call the Microbiology Laboratory if further susceptibility testing is needed. * ML - MAIN LAB ([facility]) . END OF REPORT * ML=Testing performed at Main Lab DEPARTMENT OF PATHOLOGY, [address] [place] [address] Mahamed Sharpe M.D. Director [facility] # [id number] 9 *Ascorbic acid is present which may interfere with detection of blood. 10 Normal Range 180 to 914 Indeterminate Range 145 to 180 Deficient Range <145 11 Therapeutic target for the treatment of diabetes Mellitus patients is <7% HBA1C, and in selective patients <6.0%.Please refer to [place] [employer] Association Diabetic care guidelines for further information. 12 SEE RESULT BELOW Name: ARIAS MARTINI : [address]: Rosario Armenta MD Acct: [id number] Unit: [id number] AGE: 45 Location: [facility] Re07/16/16 SEX: F Status: REG REF SPEC: [id number] [place]: 07/16/16-[address]: Rosario Armenta MD REQ: [id number] RECD: 07/16/16 STATUS: SOUT _ ORDERED: IMAGE ANALYSIS, HPV/Thin Prep, HPV 16/18 GENE COMMENTS: [id number] FINAL DIAGNOSIS Negative for Intraepithelial lesion or Malignancy A. Ectocervical/Endocervical Specimen Adequacy: Satisfactory of evaluation Transformation zone component identified Patient Information: HPV: High risk HPV RNA testing regardless of pap results. HPV 16/18 Genotype Reflex Actual Specimen Date: 07/16/16 Last Menstrual Date: 06/26/16 Previous Abnormal Pap Smears?:N Date Time Test Result Flag (u) Normal Range 07/16/16 1207 HPV RNA RFLX GE Negative Negative The high-risk HPV types detected by the assay include: 16, 18, 31, 33, 35, 39, 45, 51, 52, 56, 58, 59, 66, and 68. Signed (signature on file) BRYAN Nicholson (ASCP) 07/17 0583 This Pap test was evaluated with the assistance of the CommitChangePrep Test Imaging System. Due to cytologic findings at the journalism teacher microscope, comprehensive manual rescreening by a Export Manager may be required. The Pap Smear is a screening test designed to aid in the detection of premalignant and malignant conditions of the uterine cervix. It is not a diagnostic procedure and should not be used as the sole means of detecting cervical cancer. Both false- positive and false- negative reports do occur. Depending on your risk status, a Pap smear should be obtained and evaluated every 1-3 years. END OF REPORT * ML=Testing performed at Main Lab DEPARTMENT OF PATHOLOGY, [address] [place] [address] Mahamed Sharpe M.D. Director [facility] # [id number] 13 The high-risk HPV types detected by the assay include: 16, 18, 31, 33, 35, 39, 45, 51, 52, 56, 58, 59, 66, and 68. 14 FASTING 12 HOUR 15 Because ethnic data is not always readily available, this report includes an eGFR for both -Americans and non- Americans. The National Kidney Disease Education Program (NKDEP) does not endorse the use of the MDRD equation for patients that are not between the ages of 18 and 70, are , have extremes of body size, muscle mass, or nutritional status, or are non- or non-. According to the National Kidney Foundation, irrespective of diagnosis, the stage of the disease is based on the level of kidney function: Stage Description GFR(mL/min/1.73 m(2)) 1 Kidney damage with normal or decreased GFR 90 2 Kidney damage with mild decrease in GFR 60-89 3 Moderate decrease in GFR 30-59 4 Severe decrease in GFR 15-29 5 Kidney failure <15 (or dialysis) 16 Desirable <150 Borderline high 150-199 High 200-499 Very High >500 17 Desirable <200 Borderline high 200-239 High >239 18 Low <40 Desirable: 40-60 High: >60 19 Desirable: <100 mg/dL Near Optimal: 100-129 mg/dL Borderline High: 130-159 mg/dL High: 160-189 mg/dL Very High: >189 mg/dL 20 SEE RESULT BELOW Name: ARIAS MARTINI : [address]: Jing Saha NP Acct: [id number] Unit: [id number] AGE: 45 Location: [facility] Re06/27/16 SEX: F Status: REG REF SPEC: [id number] [place]: 06/27/161243 [facility] DR: Jing Saha NP REQ: [id number] RECD: 06/27/16 STATUS: COMP _ SOURCE: URINE SPDESC: ORDERED: Urine Culture COMMENTS: [id number] Urine Source: Random Procedure Result Reported Site Urine Culture Final 06/29/16823 ML Organism 1 CITROBACTER KOSERI [place] Count 25-50,000 (Moderate) CFU/ML 1. CITROBACTER KOSERI M.I.C. RX --------- ------ Cefazolin <=4 S Cefepime <=1 S Ceftriaxone <=1 S Ciprofloxacin <=0.25 S Gentamicin <=1 S Levofloxacin <=0.12 S Meropenem <=0.25 S Nitrofurantoin 32 S Tetracycline <=1 S Pipercillin/Tazobactam <=4 S Trimethoprim/Sulfamethoxazole <=20 S Amoxicillin/Clavulanic Acid <=2 S Aztreonam <=1 S Contact the Microbiology Department for any additional antibiotic reporting. * ML - MAIN LAB ([facility]) . END OF REPORT * ML=Testing performed at Main Lab DEPARTMENT OF PATHOLOGY, [address] [place] [address] Mahamed Sharpe M.D. Director [facility] # [id number] 21 >100 to <200 pg/mL: likely compensated congestive heart failure (CHF) 200 to 400 pg/mL: likely moderate CHF >400 pg/mL: likely moderate to severe CHF [facility] Procedures Date Code Description Status 05/14/2018 [id number] Mammogram Completed 02/12/2018 21654 Excise Breast Lesion Single,Identified By Pre-Op Completed Radiolog Marker 02/12/2018 [id number] Mammogram Completed 10/21/2017 [id number] Mammogram Completed 07/28/2016 [id number] Mammogram Completed 11/07/2014 58572 EKG Tracing & Interpretation Completed 09/25/2008 13044 EKG Tracing & Interpretation Completed Encounters Type Date Location Provider Dx Diagnosis Office Visit 08/23/2018 Tessa Armenta, S40.022A Contusion of left 10:30a Internal [facility] upper arm, [facility] initial encounter d M79.642 Pain in left hand Office Visit 06/16/2018 9:00a [facility] Tia Sood N64.4 Mastodynia Of Deanna Hurtado MD Office Visit 03/05/2018 11:00a [facility] Norman Mendoza B35.1 Tinea unguium L23.9 Allergic contact dermatitis, unspecified cause Office Visit 02/17/2018 Orthopedic Thaddeus Russell, M76.72 Peroneal tendinitis, 1:15p Services Of left leg C.M.A. Office Visit 01/21/2018 Tessa Ponce N89.8 Other specified 8:50a Internal Odalys Armenta noninflammatory [facility] disorders of vagina od Office Visit 01/19/2018 Surgical Tia Barrie R92.8 Oth abn and 2:30p [facility] inconclusive [facility] findings on dx imaging of breast Office Visit 12/18/2017 Orthopedic Silvina Suarez76.72 Peroneal tendinitis, 2:15p Services Of left leg C.M.A. 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 leg B35.1 Tinea unguium Office Visit 11/16/2017 2:00p Orthopedic Services Samantha Cortez, M25.552 Pain in left Of C.M.A. M.D. hip M70.62 Trochanteric bursitis, left hip Office Visit 10/26/2017 2:20p [facility] Internal Jing Saha, Z00.00 [facility]tr for Medicine - [facility] N.P. general adult medical exam w/o abnormal findings J45.40 Moderate persistent asthma, uncomplicated R73.01 Impaired fasting glucose B35.1 Tinea unguium M25.552 Pain in left hip M79.672 Pain in left foot D17.23 Benign lipomatous neoplasm of skin, subcu of right leg R21 Rash and other nonspecific skin eruption Office 05/19/2017 DoNotUse [facility] Internal Rosario J45.40 Moderate Visit 11:30a Medicine-Ruby Armenta M.D. persistent asthma, uncomplicated Office 08/18/2016 [employer] [facility] Rosario R73.01 Impaired fasting Visit 7:50a Pardeep Armenta M.D. glucose D64.9 Anemia, unspecified F43.9 Reaction to severe stress, unspecified F32.81 Premenstrual dysphoric disorder Office Visit 07/16/2016 [employer] [facility] Rosario F43.9 Reaction to 11:10a Pradeep Armenta M.D. severe stress, unspecified R73.01 Impaired fasting glucose D64.9 Anemia, unspecified Z00.01 Encounter for general adult medical exam w abnormal findings Z12.4 Encounter for screening for malignant neoplasm of cervix Office Visit 06/27/2016 11:40a [facility] Jing Saha, N39.0 Urinary tract Medicine - N.P. infection, site [facility] not specified Office Visit 01/18/2016 9:40a [facility] Jing Saha M54.5 Low back pain Medicine - N.P. [facility] Office Visit 10/22/2015 10:20a [facility] Jing Saha, Z91.018 Allergy to other Medicine - N.P. foods [facility] L23.6 Allergic contact dermatitis due to food in contact w skin Office Visit 08/08/2015 4:20p [facility] Jing Saha M54.5 Low back pain Medicine - [facility] N.P. Office Visit 07/02/2015 11:20a [facility] Jing Saha M54.5 Low back pain Medicine - [facility] N.P. Office Visit 12/04/2014 9:50a [facility] Rosario Armenta, 477.9 Rhinitis Medicine - [facility] M.D. Allergic Cause Unspec 786.2 Cough V65.49 Counseling Other Spec Office Visit 11/07/2014 10:50a [facility] Rosario Armenta, 786.05 Shortness Of Medicine - M.D. Breath [facility] Office Visit 04/14/2014 2:30p [facility] Malcolm Ng NP 780.4 Dizziness & Medicine - Giddiness [facility] Office Visit 12/23/2013 1:40p [facility] Jing Saha, 681.11 Onychia & Medicine - N.P. Paronychia Toe [facility] 078.12 Plantar Wart 786.2 Cough Office Visit 12/08/2013 11:00a [facility] [employer] [facility] Jing Saha, 477.9 Rhinitis Medicine - [facility] N.P. Allergic Cause Unspec 372.14 Conjunctivitis Chronic Allergic Other 782.1 Rash & Other Nonspec Skin Eruption Office Visit 06/26/2009 DO Not Use Jing Varn, 465.9 URI Upper 9:30a [employer] N.P. Respiratory Infections Acute Unspec Sites 705.81 Dyshidrosis Office Visit 04/12/2009 DO Not Use Radrishi, 790.21 Impaired Fasting 1:00p Luis Mercado M.D. Glucose Office Visit 01/10/2009 DO Not Use Jing Ahujan, 705.81 Dyshidrosis 2:00p [employer] N.P. Office Visit 12/20/2008 DO Not Use Kathrin, 461.9 Sinusitis Acute 4:00p Luis Mercado M.D. Unspec Office Visit 11/21/2008 DO Not Use Kathrin 477.9 Rhinitis 3:45p Luis Mercado M.D. Allergic Cause Unspec 372.14 Conjunctivitis Chronic Allergic Other Office Visit 10/31/2008 DO Not Use Kathrin, 790.21 Impaired Fasting 8:30a Luis Mercado M.D. Glucose Office Visit 09/25/2008 DO Not Use Kathrin, V72.31 Routine Carbon Plant Grinder 9:45a Luis Mercado M.D. Examination 285.9 Anemia Unspec Office Visit 06/27/2008 DO Not Use Kathrin, 709.00 Dyschromia 4:00p Luis Mercado M.D. Unspec Office Visit 12/30/2007 DO Not Use Jing Saha 477.9 Rhinitis 9:30a [employer] N.P. Allergic Cause Unspec 519.11 Acute Bronchospasm Office Visit 10/15/2007 DO Not Use Jing Saha, 733.6 Tietzes Disease 3:15p [employer] N.P. Office Visit 05/05/2007 DO Not Use Kathrin 465.9 URI Upper 11:15a Luis Mercado M.D. 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 Plantar Fascia Office Visit 02/02/2007 DO Not Use Jing Varn, V07.8 Other Unspecified 10:15a [employer] N.P. Prophylactic Or Treatment Measure V05.3 Viral Hepatitis Vaccination & Inoculation Office Visit 12/22/2006 DO Not Use Jing 372.14 Conjunctivitis 10:45a [employer] Varn, N.P. Chronic Allergic Other 477.9 Rhinitis Allergic Cause Unspec Office Visit 12/17/2006 11:15a DO Not Use Jing Varn, 477.9 Rhinitis [employer] N.P. Allergic Cause Unspec Office Visit 08/24/2006 11:45a DO Not Use Xochitl Quin, 382.9 Otitis Media Luis Morrow, FACP Unspec Office Visit 08/03/2006 1:15p DO Not Use Jing Varn, 708.9 Urticaria [employer] N.P. Unspec Office Visit 06/12/2006 4:00p DO Not Use Jing Varn, 784.0 Headache [employer] N.P. 354.0 Carpal Tunnel Syndrome 781.0 Abnormal Involuntary Movements Office Visit 04/03/2006 DO Not Use Radomski, 465.9 URI Upper 4:30p Luis Mercado M.D. Respiratory Infections Acute Unspec Sites 786.2 Cough Plan of Treatment Future Appointment(s):01/17/2019 1:00 pm - Rosario Armenta M.D. at [facility] Internal Medicine - [facility]01/03/2019 - Rosario Armenta M.D.J45.41 Moderate persistent asthma with (acute) exacerbationNew Medication:Prednisone 10 mg - 4 tab daily X 3 day then 3 tab daily x 3 days and then 2 tab daily x 3 days 1 tabdaily x 3 daysR73.01 Impaired fasting hwbzsreE68.0 Acute stress hshztptsU00.39 Body mass index (BMI) 39.0-39.9, adult
[2019-01-06 14:23] VITALS: BP 152/93
[2019-01-06] MEDS ORDERED: Aspirin TAB* 325 MG PO ONE (14:41)
== END 2019-01-06 14:50 | disposition home health service (06) ==
LOC: UCEAST 13:58
DX: R06.00 Dyspnea, unspecified (principal); R07.9 Chest pain, unspecified; Z91.040 Latex allergy status
CPT/HCPCS: 99212; G0463

== ENCOUNTER 2019-01-06 15:27 | Emergency (ER) | payer OTHER ==
[2019-01-06 16:09] LABS: ABS Basophils 0.1 10^3/ul (0-0.2); ABS Lymphocytes 1.8 10^3/ul (1.0-4.8); ABS Monocytes 0.2 10^3/ul (0-0.8); ABS Neutrophils 9.8 10^3/ul (1.5-7.7); Hematocrit 33 % (35-47); Hemoglobin 10.9 g/dL (12.0-16.0); Lymphocyte % 15.3 %; Mean Corpuscular HGB Conc 33 g/dL (31-36); Mean Corpuscular Hemoglobin 28 pg (27-31); Mean Corpuscular Volume 84 fL (80-97); Mean Platelet Volume 8.1 fL (7.4-10.4); Platelet Count 298 10^3/uL (150-450); Red Blood Count 3.95 10^6 /uL (3.70-4.87); Red Cell Distribution Width 13 % (10-15); White Blood Count 11.9 10^3/uL (3.5-10.8)
[2019-01-06 16:13] LABS: INR 0.96 (0.82-1.09)
[2019-01-06 16:31] LABS: Albumin 4.3 g/dL (3.2-5.2); Albumin/Globulin Ratio 1.2 (1-3); BUN/Creatinine Ratio 23.6 (8-20); Calcium 9.6 mg/dL (8.6-10.3); EGFR African American 104.6 (>60); EGFR Non-African American 86.5 (>60); Globulin 3.7 g/dL (2-4); Potassium 4.5 mmol/L (3.5-5.0); Total Bilirubin 0.2 mg/dL (0.2-1.0)
--- NOTE | 2019-01-06 19:53 | ED ---
HPI Chest Pain - HPI Summary HPI Summary: Patient complains of chest tightness and exertional SOB 1 week. Chest tightness described as sternal, worse with exertion, improves with lying down, rated at 1/10, no radiation. Patient has history of asthma and seasonal allergies. No active symptoms here in ED. Patient was evaluated by PCP 4 days ago and given prescription for prednisone taper, which patient has been taking. Patient also has rescue inhaler. Patient denies fever, cough, sore throat, STOVER , neck stiffness, CP, N/V/D, abdominal pain, change in urine, change in BM. Medical history is anemia, seasonal allergies, asthma. Unknown family cardiac history. - History of Current Complaint Chief Complaint: EDChestPainROMI Time Seen by Provider: 01/06/19 17:52 Hx Obtained From: Patient Hx Last Menstrual Period: 09/08/16 Onset/Duration: Started Days Ago Timing: Intermittent, Lasting Minutes Current Severity: None Pain Intensity: 0 Pain Scale Used: 0-10 Numeric Chest Pain Location: Mid Sternal Chest Pain Radiates: No Character: Tightness Aggravating Factor(s): Exertion Alleviating Factor(s): Rest Associated Signs and Symptoms: Positive: Shortness of Breath - Allergy/Home Medications Allergies/Adverse Reactions: Allergies Allergy/AdvReac Type Severity Reaction Status Date / Time ibuprofen Allergy Intermediate Nausea Verified 01/06/19 15:37 latex Allergy Intermediate Rash Verified 01/06/19 15:37 eggs Allergy Severe Nausea And Uncoded 01/06/19 15:37 Vomiting metal Allergy Severe Rash Uncoded 01/06/19 15:37 Home Medications: Home Medications LoraTADine TAB(NF) [Claritin 10 MG TAB(NF)] 10 mg PO DAILY 01/06/19 [History Confirmed 01/06/19] PMH/Surg Hx/FS Hx/Imm Hx Endocrine/Hematology History: Reports: Hx Anemia - hx of iron deficiency anemia Denies: Hx Diabetes, Hx Thyroid Disease Cardiovascular History: Denies: Hx Hypertension Respiratory History: Reports: Hx Asthma - inhaler Denies: Hx Chronic Obstructive Pulmonary Disease (COPD) GI History: Denies: Hx Ulcer History: Denies: Hx Dialysis Musculoskeletal History: Reports: Hx Bursitis - left hip, Hx Tendonitis - left foot 2 months back Denies: Hx Scoliosis Sensory History: Reports: Hx Contacts or Glasses - glasses for reading Denies: Hx Hearing Aid Opthamlomology History: Reports: Hx Contacts or Glasses - glasses for reading Neurological History: Denies: Hx Headaches, Other Neuro Impairments/Disorders Psychiatric History: Reports: Hx Anxiety - claustrophobic- situational - Cancer History Hx Chemotherapy: No Hx Radiation Therapy: No - Surgical History Surgery Procedure, Year, and Place: carpal tunnel right hand 2008. ingrown toenail in left foot Hx Anesthesia Reactions: No Infectious Disease History: No Infectious Disease History: Denies: Hx Hepatitis, Hx Human Immunodeficiency Virus (HIV), Traveled Outside the [place] in Last 30 Days - Family History Known Family History: Positive: Cardiac Disease, Hypertension, Respiratory Disease - Social History Alcohol Use: None Substance Use Type: Reports: None Smoking Status (MU): Never Smoked Tobacco Have You Smoked in the Last Year: No Review of Systems Constitutional: Negative Eyes: Negative ENT: Negative Cardiovascular: Negative Positive: Shortness Of Breath Gastrointestinal: Negative Genitourinary: Negative Musculoskeletal: Negative Skin: Negative Neurological: Negative Psychological: Normal All Other Systems Reviewed And Are Negative: Yes Physical Exam - Summary Physical Exam Summary: Chest tightness are reproducible. Lung sounds clear to auscultation bilaterally. Abdomen soft nontender. RRR. No peripheral edema. Triage Information Reviewed: Yes Vital Signs On Initial Exam: Initial Vitals Temp Pulse Resp BP Pulse Ox 98.4 F 70 18 170/95 100 01/06/19 15:34 01/06/19 15:34 01/06/19 15:34 01/06/19 15:34 01/06/19 15:34 Vital Signs Reviewed: Yes Appearance: Positive: Well-Appearing Skin: Positive: Warm Head/Face: Positive: Normal Head/Face Inspection Eyes: Positive: Normal ENT: Positive: Normal ENT inspection Neck: Positive: Supple Respiratory/Lung Sounds: Positive: Clear to Auscultation Cardiovascular: Positive: Normal Abdomen Description: Positive: Nontender Musculoskeletal: Positive: Normal Neurological: Positive: Normal Psychiatric: Positive: Normal AVPU Assessment: Alert - [place] Coma Scale Best Eye Response: 4 - Spontaneous Best Motor Response: 6 - Obeys Commands Best Verbal Response: 5 - Oriented Coma Scale Total: 15 Diagnostics - Vital Signs Vital Signs Temp Pulse Resp BP Pulse Ox 01/06/19 19:08 66 16 161/99 100 01/06/19 19:03 72 13 97 01/06/19 18:38 56 12 166/94 100 01/06/19 18:15 59 15 100 01/06/19 18:08 60 16 157/103 99 01/06/19 16:46 97.8 F 68 16 158/116 100 01/06/19 15:34 98.4 F 70 18 170/95 100 - Laboratory Lab Results: Lab Results 01/06/19 01/06/19 01/06/19 Range/Units 15:58 15:58 15:58 WBC 11.9 H (3.5-10.8) 10^3/uL RBC 3.95 (3.70-4.87) 10^6 /uL Hgb 10.9 L (12.0-16.0) g/dL Hct 33 L (35-47) % MCV 84 (80-97) fL MCH 28 (27-31) pg MCHC 33 (31-36) g/dL RDW 13 (10-15) % Plt Count 298 (150-450) 10^3/uL MPV 8.1 (7.4-10.4) fL Neut % (Auto) 82.2 % Lymph % (Auto) 15.3 % [place]oyah % (Auto) 1.9 % Eos % (Auto) 0.0 % Baso % (Auto) 0.6 % Absolute Neuts (auto) 9.8 H (1.5-7.7) 10^3/ul Absolute Lymphs (auto) 1.8 (1.0-4.8) 10^3/ul Absolute Monos (auto) 0.2 (0-0.8) 10^3/ul Absolute Eos (auto) 0.0 (0-0.6) 10^3/ul Absolute Basos (auto) 0.1 (0-0.2) 10^3/ul Absolute Nucleated RBC 0.0 10^3/ul Nucleated RBC % 0.0 INR (Anticoag Therapy) 0.96 (0.82-1.09) Sodium 139 (135-145) mmol/L Potassium 4.5 (3.5-5.0) mmol/L Chloride 106 (101-111) mmol/L Carbon Dioxide 28 (22-32) mmol/L Anion Gap 5 (2-11) mmol/L BUN 17 (6-24) mg/dL Creatinine 0.72 (0.51-0.95) mg/dL Est GFR ( Amer) 104.6 (>60) Est GFR (Non-Af Amer) 86.5 (>60) BUN/Creatinine Ratio 23.6 H (8-20) Glucose 181 H (70-100) mg/dL Calcium 9.6 (8.6-10.3) mg/dL Total Bilirubin 0.20 (0.2-1.0) mg/dL AST 18 (13-39) U/L ALT 39 (7-52) U/L Alkaline Phosphatase 123 H (34-104) U/L Troponin I 0.00 (<0.04) ng/mL Total Protein 8.0 (6.4-8.9) g/dL Albumin 4.3 (3.2-5.2) g/dL Globulin 3.7 (2-4) g/dL Albumin/Globulin Ratio 1.2 (1-3) 01/06/19 Range/Units 18:22 WBC (3.5-10.8) 10^3/uL RBC (3.70-4.87) 10^6 /uL Hgb (12.0-16.0) g/dL Hct (35-47) % MCV (80-97) fL MCH (27-31) pg MCHC (31-36) g/dL RDW (10-15) % Plt Count (150-450) 10^3/uL MPV (7.4-10.4) fL Neut % (Auto) % Lymph % (Auto) % [place]ah % (Auto) % Eos % (Auto) % Baso % (Auto) % Absolute Neuts (auto) (1.5-7.7) 10^3/ul Absolute Lymphs (auto) (1.0-4.8) 10^3/ul Absolute Monos (auto) (0-0.8) 10^3/ul Absolute Eos (auto) (0-0.6) 10^3/ul Absolute Basos (auto) (0-0.2) 10^3/ul Absolute Nucleated RBC 10^3/ul Nucleated RBC % INR (Anticoag Therapy) (0.82-1.09) Sodium (135-145) mmol/L Potassium (3.5-5.0) mmol/L Chloride (101-111) mmol/L Carbon Dioxide (22-32) mmol/L Anion Gap (2-11) mmol/L BUN (6-24) mg/dL Creatinine (0.51-0.95) mg/dL Est GFR ( Amer) (>60) Est GFR (Non-Af Amer) (>60) BUN/Creatinine Ratio (8-20) Glucose (70-100) mg/dL Calcium (8.6-10.3) mg/dL Total Bilirubin (0.2-1.0) mg/dL AST (13-39) U/L ALT (7-52) U/L Alkaline Phosphatase (34-104) U/L Troponin I 0.00 (<0.04) ng/mL Total Protein (6.4-8.9) g/dL Albumin (3.2-5.2) g/dL Globulin (2-4) g/dL Albumin/Globulin Ratio (1-3) Result Diagrams: 01/06/19 15:58 01/06/19 15:58 Lab Statement: Any lab studies that have been ordered have been reviewed, and results considered in the medical decision making process. Chest Pain Course/Dx - Course Course Of Treatment: Patient complains of chest tightness and exertional SOB 1 week. Chest tightness described as sternal, worse with exertion, improves with lying down, rated at 1/10, no radiation. Patient has history of asthma and seasonal allergies. No active symptoms here in ED. Patient was evaluated by PCP 4 days ago and given prescription for prednisone taper, which patient has been taking. Patient also has rescue inhaler. Patient denies fever, cough, sore throat, STOVER, neck stiffness, CP, N/V/D, abdominal pain, change in urine, change in BM. Medical history is anemia, seasonal allergies, asthma. Unknown family cardiac history. Physical exam:Chest tightness are reproducible. Lung sounds clear to auscultation bilaterally. Abdomen soft nontender. RRR. No peripheral edema. Vital signs within normal limits. WBC 11.9. Hemoglobin 10.9 , patient baseline. Labs unremarkable. Serial troponins negative. Chest x- ray negative. EKG sinus rhythm. Patient ambulated here in the ED with pulse ox and vital signs remained within normal limits. Patient has no risk factors for cardiac disease. Patient sees PCP regularly. - Diagnoses Provider Diagnoses: Asthma, Seasonal allergies Discharge - Sign-Out/Discharge Documenting (check all that apply): Patient Departure Patient Received Moderate/Deep Sedation with Procedure: No - Discharge Plan Condition: Stable Disposition: HOME Patient Education Materials: Asthma (ED), Allergies (ED) Forms: *Work Release Referrals: Rosario Armenta MD [Primary Care Provider] - Viktor Schwartz MD [Medical Doctor] - Additional Instructions: Continue to take prednisone as prescribed by primary care. Follow-up with primary care and diamond wheel molder Dr. Schwartz for possible stress test. Return to the ED for any new or worsening symptoms. - Billing Disposition and Condition Condition: STABLE Disposition: Home
[2019-01-06 20:20] VITALS: BP 156/79
== END 2019-01-06 20:13 | disposition home or self-care (01) ==
LOC: ED 15:27
DX: J45.909 Unspecified asthma, uncomplicated (principal); Z88.6 Allergy status to analgesic agent; Z91.012 Allergy to eggs; Z91.040 Latex allergy status; Z91.09 Other allergy status, other than to drugs and biological substances
CPT/HCPCS: 36415; 71046; 80053; 84484; 85025; 85610; 93005; 99282

== ENCOUNTER 2019-04-25 11:41 | Emergency (ER) | payer OTHER ==
--- OUTSIDE RECORDS SUMMARY | 2019-04-25 11:46 | XMS REPORT | Continuity of Care Document ---
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 Medicine Problems Active Problems Provider Date Allergic rhinitis due to pollen Randall Smith MD Onset: 11/21/2016 Allergic rhinitis Randall Smith MD Onset: 11/21/2016 Uncomplicated moderate persistent asthma Randall Smith MD Onset: Acute atopic conjunctivitis Randall Smith MD Onset: 11/21/2016 Low serum ferritin Rosario Armenta MD Onset: 08/18/2016 Iron deficiency anemia Rosario Armenta MD Onset: 08/18/2016 Impaired fasting glycaemia Rosario Armenta MD Onset: 07/16/2016 Obesity Rosario Armenta MD Onset: 12/04/2014 Social History Type Date Description Comments Sex Unknown Tobacco Use Start: Unknown Patient has never smoked Smoking Status Reviewed: 02/04/19 Patient has never smoked Allergies, Adverse Reactions, Alerts Active Allergies Reaction Severity Comments Date Eggs 09/25/2009 Ibuprofen 11/21/2016 Medications Active Medications SIG Qnty Indications Ordering Provider Date Flovent HFA inhale two puffs 12gm J45.40 Randall Nelson 02/04/2019 220mcg/Act by mouth twice MD [facility] Aerosol daily Atrovent HFA inhale 2 puffs 38.7gm J45.40 Randall Nelson 02/04/2019 17mcg/Act by inhalation MD Luis Aerosol route 4 times a day as needed Asmanex HFA 2 puffs twice a 13gm J45.40 Christopher A. 10/11/2018 100mcg/Act day MD [facility] Aerosol Olopatadine HCL one drop each 5ml J30.1 Christopher A. 10/11/2018 0.2% eye daily as MD [facility] Solution needed Ketotifen Fumarate 1 drop apply to 5ml J30.1 Christopher A. 12/14/2017 0.025% affected eye MD Luis Solution twice a day as needed Proair HFA 2 puffs every 4 8.500gm J30.1 Christopher A. 06/10/2017 108(90Base) as needed MD Luis mcg/Act Aerosol Levocetirizine take 1 tablet (5 30tabs J30.1 Christopher A. 11/21/2016 Dihydrochloride mg) by oral MD Luis 5mg route once daily Tablets as needed Triamcinolone apply twice a 30units M54.5 Christopher A. 07/02/2015 Acetonide day until clear MD Luis 0.1% Cream Amlodipine Besylate ArmentaDahliaa, 2.5mg Tablets Multivitamins Unknown Capsules Iron (Ferrous Unknown Gluconate) 256(28Fe) mg Tablets Vitamin B12 Unknown 1000mcg Tablets ER Flonase Allergy Relief 2 puffs each 19.8ml Christopher A. nostril every MD Luis 50mcg/Act Suspension day History Medications Flovent HFA 2 puff twice a day 12gm Christopher A. 01/05/2019 - MD Luis 03/25/2019 110mcg/Act Aerosol Cromolyn Sodium instill 1-2 drops 10ml Christopher A. 10/13/2018 - in affected eye. MD Luis 12/23/2018 4% Solution appointment needed for more refills Pazeo one drop each eye 2.500ml J45.40 Christopher A. 10/11/2018 - 0.7% as needed every MD Luis 10/13/2018 Solution day as needed Flovent HFA 2 puff twice a day 10.600gm Christopher A. 10/11/2018 - MD Luis 03/25/2019 44mcg/Act Aerosol Immunizations CPT Code Status Date Vaccine Lot # [id number] Given 05/10/2016 Influenza Virus Vaccine, Quadrivalent, Slit Virus, Im Use 79841 Given 06/07/2014 Influenza Virus Vaccine Split Virus 3Yr Older [id number] 22269 Given 03/18/2007 Hepatitis B Vaccine Adult 32410 Given 02/02/2007 Hepatitis B Vaccine Adult 67202 Given 02/02/2007 Hepatitis A Vaccine Adult Dosage 74182 Given 02/02/2007 Hepatitis A Vaccine Adult Dosage Vital Signs Date Vital Result Comment 03/25/2019 10:34am BP Systolic 126 mmHg BP Diastolic 77 mmHg Height 61 inches 5'1" Weight 200.00 lb BMI (Body Mass Index) 37.8 kg/m2 Heart Rate 74 /min Respiratory Rate 16 /min O2 % BldC Oximetry 98 % 10/11/2018 2:55pm BP Systolic 100 mmHg BP Diastolic 76 mmHg Height 61 inches 5'1" Weight 200.00 lb BMI (Body Mass Index) 37.8 kg/m2 Heart Rate 80 /min Respiratory Rate 20 /min O2 % BldC Oximetry 99 % Results Test Date Facility Test Result H/L Range Note Order 02/04/2019 [facility] Inhaler <pending> Training-Patient Demonstrates Competency Procedures Date Code Description Status 02/04/2019 47963 Demonstration/Eval,Of Patient Utilization Of Completed Aerosol,Nebulizer 10/11/2018 43539 Nitric Oxide Gas Determination Completed 10/11/2018 04653 Bronchodilation Responsiveness Spirometry Pre/Post Completed Bronchodil Adm Medical Devices Description No Information Available Encounters Type Date Location Provider Dx Diagnosis Office Visit 02/04/2019 Florina Nelson J45.40 Moderate persistent 1:00p MD [facility] asthma, uncomplicated Office Visit 10/11/2018 [facility] [place] J30.1 Allergic rhinitis due 2:30p to pollen J30.89 Other allergic rhinitis J45.40 Moderate persistent asthma, uncomplicated Assessments Date Code Description Provider 02/04/2019 J45.40 Moderate persistent asthma, uncomplicated Randall Smith MD 10/11/2018 J30.1 Allergic rhinitis due to pollen [facility] Palafox 10/11/2018 J30.89 Other allergic rhinitis [facility] Palafox 10/11/2018 J45.40 Moderate persistent asthma, uncomplicated Venkat Franks, PA Plan of Treatment No Information Available Functional Status Description No Information Available Mental Status Description No Information Available Referrals Description No Information Available
--- OUTSIDE RECORDS SUMMARY | 2019-04-25 11:46 | XMS REPORT | Continuity of Care Document ---
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 Problems Active Problems Provider Date Allergic [...] clear MD Luis 0.1% Cream Amlodipine Besylate Rosario Armenta, 2.5mg Tablets Multivitamins Unknown Capsules Iron (Ferrous [...] CPT Code Status Date Vaccine Lot # [id number] Given 05/10/2016 Influenza Virus Vaccine, Quadrivalent, Slit Virus, Im Use 17983 Given 06/07/2014 Influenza Virus Vaccine Split Virus 3Yr Older [id number] 07695 Given 03/18/2007 Hepatitis B Vaccine Adult 38788 Given 02/02/2007 Hepatitis B Vaccine Adult 94079 Given 02/02/2007 Hepatitis A Vaccine Adult Dosage 54211 Given 02/02/2007 Hepatitis A Vaccine Adult Dosage [...] Demonstrates Competency Procedures Date Code Description Status 03/25/2019 23675 Nitric Oxide Gas Determination Completed 03/25/2019 72998 Bronchodilation Responsiveness Spirometry Pre/Post Completed Bronchodil Adm 02/04/2019 19698 Demonstration/Eval,Of Patient Utilization Of Completed Aerosol,Nebulizer 10/11/2018 13138 Nitric Oxide Gas Determination Completed 10/11/2018 52815 Bronchodilation Responsiveness Spirometry Pre/Post Completed Bronchodil Adm Medical Devices Description No Information Available Encounters Type Date Location Provider Dx Diagnosis Office Visit 03/25/2019 Florina Villegas NP J45.40 Moderate persistent 10:30a asthma, uncomplicated J30.1 Allergic rhinitis due to pollen Office Visit 02/04/2019 1:00p Florina Nelson J45.40 Moderate persistent MD Luis asthma, uncomplicated Office Visit 10/11/2018 2:30p [facility] [place] J30.1 Allergic rhinitis due to pollen J30.89 Other allergic rhinitis J45.40 Moderate persistent asthma, uncomplicated Assessments Date Code Description Provider 03/25/2019 J45.40 Moderate persistent asthma, uncomplicated Radha Villegas, OB NURSE 03/25/2019 J30.1 Allergic rhinitis due to pollen Radha Villegas NP 02/04/2019 J45.40 Moderate persistent asthma, uncomplicated Randall Smith MD 10/11/2018 J30.1 Allergic rhinitis due to pollen [facility] Palafox 10/11/2018 J30.89 Other allergic rhinitis ERIC Palafox 10/11/2018 J45.40 Moderate persistent asthma, uncomplicated ERIC Palafox Plan of Treatment Future Appointment(s):09/16/2019 3:30 pm - Radha Villegas NP at [id number] - Radha Villegas NPJ45.40 Moderate persistent asthma, uncomplicatedComments :Patient presents with moderate persistent asthma and reports shortness of breath with exertional activity.i.e. climbing stairs or inclines.Pulmonary function tests revealed mild restriction with PVC 78, FEV1 FVC 102, FEF 2575-76 , post test 79,101, 76 respectively. Demonstrating mild restriction. Patient does have symptoms with climbing stairs I recommend Flovent at the start of her workday as she does have to climb stairs repeatedly through the day. Interestingly enough she denies exercise intolerance with running on a treadmill.I recommend during her worst times a year's increase her Flovent to3 inhalations twice daily, doing her best times a year she may be able to titrate down to 1 inhalation twice daily. She is going to have to wait and see how much she uses the Atrovent and how short ofbreath she is with climbing stairs. I encouraged her to continue her exercise program increasing the time she runs on the treadmill and increasing the incline to improve her endurance.I recommend she follow up in 6 month will have a repeat PFT and NiOx study.Continue current medical plan.J30.1 Allergic rhinitis due to pollen Functional Status Description No Information Available Mental Status Description No Information Available Referrals Description No Information Available
--- OUTSIDE RECORDS SUMMARY | 2019-04-25 11:46 | XMS REPORT | Continuity of Care Document ---
:1970 External Reference #:[id number] Author Name Nurse Visit A (transmitted by agent of provider Becky Jason) Address [address], [place] [address] Care Team Providers Name Role Phone Rosario Armenta MD - Internal Care Team Information Heel [facility] Medicine Problems Active Problems Provider Date Allergic rhinitis Jing Saha, N.P. Onset: 12/08/2013 Obesity Rosario Armenta M.D. Onset: 12/04/2014 Impaired fasting glycaemia Rosario Armenta M.D. Onset: 07/16/2016 Low serum ferritin Rosario Armenta M.D. Onset: 08/18/2016 Iron deficiency anemia Rosario Armenta M.D. Onset: 08/18/2016 Moderate persistent asthma Rosario Armenta M.D. Onset: 12/03/2016 Trochanteric bursitis Samantha Cortez M.D. Onset: 12/14/2017 Localized, primary osteoarthritis of the Samantha Cortez M.D. Onset: 12/14/2017 pelvic region and thigh Peroneal tendinitis, left leg Thaddeus Russell MD Onset: 02/17/2018 Social History Type Date Description Comments Sex Unknown ETOH Use Denies alcohol use Tobacco Use Start: Unknown Patient has never smoked Recreational Drug Use Denies Drug Use Smoking Status Reviewed: 03/22/19 Patient has never smoked Exercise Type/Frequency Exercises sporadically walks at school , takes stairs Allergies, Adverse Reactions, Alerts Active Allergies Reaction Severity Comments Date Ibuprofen More than 1 qd-nausea 09/25/2009 Eggs 09/25/2009 [place] 10/26/2017 Banana Extract 01/19/2018 Latex Urticaria band-aid 01/19/2018 Metals rash 01/19/2018 Lettuce 01/19/2018 Chloraprep One-Step rash 02/15/2018 Medications Active Medications SIG Qnty Indications Ordering Date Provider Flovent HFA take 2 puffs 12gm Other Ordering 03/22/2019 220mcg/Act twice a day Provider Aerosol .rinse mouth after use. Amlodipine Besylate 1 by mouth every 90tabs I10 Rosario Armenta, 02/16/2019 5mg day M.D. Tablets Triamcinolone now prn---apply 30gm M54.5 Jing Yifan, 07/02/2015 Acetonide twice a day until N.P. 0.1% Cream clear Multi Complete daily Unknown Capsules B12 daily Unknown 1000mcg Tablets Dispers Ferrous Gluconate 1 by mouth every Unknown day 324(37.5Fe) mg Tablets KP Ketotifen Fumarate instill 1 drop In Unknown Affected Eye(S) 0.025% Solution Twice Daily as Needed Claritin 1 by mouth every Unknown 10mg Capsules day prn Fluticasone Propionate pt does 1 Unknown Nasal [place] spray----2 sprays 50mcg/Act to each nare Suspension daily Atrovent HFA inhale 2 puffs by Unknown 17mcg/Act mouth four times Aerosol a day if needed History Medications Amlodipine Besylate 1 by mouth 60tabs I10 Rosario Armenta, 02/01/2019 - every day M.D. 02/16/2019 2.5mg Tablets Omeprazole 1 by mouth 60caps R07.0 Rosario Armenta, 01/11/2019 - 20mg every day M.D. 02/01/[address] Prednisone 4 tab daily X 3 QS J45.41 Rosario Armenta, 01/03/2019 - 10mg day then 3 tab M.D. 01/15/2019 Tablets daily x 3 days and then 2 tab daily x 3 days 1 tab daily x 3 days Medications Administered in Office Medication SIG Qnty Indications Ordering Provider Date Td(Adult),Unspecified Unknown 02/26/2015 Injection Immunizations CPT Code Status Date Vaccine Reaction Lot # [id number] Given 03/25/2019 Pneumonia Vaccine No immediate reaction [id number] Given 05/10/2016 Influ Virus Vaccine, no reaction, pt [id number] Quadrivalent, Split Virus, [place] [id number] Given 06/07/2014 Flu Vaccine Split Virus [id number] Preservative Free For Indiv [id number] Older 38929 Given 03/18/2007 Hepatitis B Vaccine Adult Dosage 29307 Given 02/02/2007 Hepatitis B Vaccine Adult Dosage 07392 Given 02/02/2007 Hepatitis A Vaccine Adult Dosage [id number] Given 02/02/2007 Hepatitis A Vaccine Adult Dosage Vital Signs Date Vital Result Comment 03/22/2019 8:53am Weight 202.25 lb Heart Rate 85 /min BP Systolic 123 mmHg BP Diastolic 82 mmHg O2 % BldC Oximetry 99 % 03/03/2019 11:25am BP Systolic 136 mmHg manual bp R arm BP Diastolic 90 mmHg manual bp R arm BP Systolic Sitting 142 mmHg manual bp R arm BP Diastolic Sitting 90 mmHg manual bp R arm BP Systolic Standing 138 mmHg manual bp L arm BP Diastolic Standing 88 mmHg manual bp L arm Results Test Date Facility Test Result H/L Range Note Laboratory test 01/06/2019 [facility] Troponin-I 0.00 ng/mL < 0.04 [address] (TnI) [place] [address] [phone] CBC Auto Diff 01/06/2019 [facility] White Blood 11.9 10^3/uL High 3.5-10.[address] [place] [address] [phone] Red Blood Count 3.95 10^6/uL Normal 3.70-4.87 Hemoglobin 10.9 g/dL Low 12.0-16.0 Hematocrit 33 % Low 35-47 Mean Corpuscular Volume 84 fL Normal 80-97 Mean Corpuscular Hemoglobin 28 pg Normal 27-31 Mean Corpuscular HGB Conc 33 g/dL Normal 31-36 Red Cell Distribution Width 13 % Normal 10-15 Platelet Count 298 10^3/uL Normal 150-450 Mean Platelet Volume 8.1 fL Normal 7.4-10.4 Abs Neutrophils 9.8 10^3/uL High 1.5-7.7 Abs Lymphocytes 1.8 10^3/uL Normal 1.0-4.8 Abs Monocytes 0.2 10^3/uL Normal 0-0.8 Abs Eosinophils 0.0 10^3/uL Normal 0-0.6 Abs Basophils 0.1 10^3/uL Normal 0-0.2 Abs Nucleated RBC 0.0 10^3/uL Granulocyte % 82.2 % Lymphocyte % 15.3 % Monocyte % 1.9 % Eosinophil % 0.0 % Basophil % 0.6 % Nucleated Red Blood Cells % 0.0 Inr/Protime 01/06/2019 [facility] Inr 0.96 Normal 0.82-1.[address] [place] [address] [phone] Laboratory test 01/06/2019 [facility] Troponin-I 0.00 <0.04 [address] (TnI) ng/[place] [address] [phone] Comp Metabolic 01/06/2019 [facility] Sodium 139 Normal 135- [address] mmol/[place] [address] [phone] Potassium 4.5 mmol/L Normal 3.5-5.0 Chloride 106 mmol/L Normal 101-111 Co2 Carbon Dioxide 28 mmol/L Normal 22-32 Anion Gap 5 mmol/L Normal 2-11 Glucose 181 mg/dL High 70-100 Blood Urea Nitrogen 17 mg/dL Normal 6-24 Creatinine 0.72 mg/dL Normal 0.51-0.95 BUN/Creatinine Ratio 23.6 High 8-20 Calcium 9.6 mg/dL Normal 8.6-10.3 Total Protein 8.0 g/dL Normal 6.4-8.9 Albumin 4.3 g/dL Normal 3.2-5.2 Globulin 3.7 g/dL Normal 2-4 Albumin/Globulin Ratio 1.2 Normal 1-3 Total Bilirubin 0.20 mg/dL Normal 0.2-1.0 Alkaline Phosphatase 123 U/L High 34-104 Alt 39 U/L Normal 7-52 Ast 18 U/L Normal 13-39 Egfr Non- 86.5 >60 Egfr 104.6 >60 4 1 Troponin-I testing on Plasma Separator Tubes (PST) has a known false positive rate of 0.20-0.40%. All positive troponins reflex immediately to secondary confirmatory testing. Using the [employer] 800 Access Immunoassay systems, the 99th percentile upper reference limit was demonstrated to be < 0.03 ng/mL. 2 Standard intensity warfarin therapeutic range: 2.0-3.0 High intensity warfarin therapeutic range: 2.5-3.5 3 Troponin-I testing on Plasma Separator Tubes (PST) has a known false positive rate of 0.20-0.40%. All positive troponins reflex immediately to secondary confirmatory testing. Using the [employer] DxI 800 Access Immunoassay systems, the 99th percentile upper reference limit was demonstrated to be < 0.03 ng/mL. 4 Because ethnic data is not always readily [...] 15-29 5 Kidney failure <15 (or dialysis) Procedures Date Code Description Status 02/15/2019 85327 Stress Test Completed 02/15/2019 31874 Stress Test Completed 02/04/2019 [id number] Mammogram Completed 05/14/2018 [id number] Mammogram Completed 02/12/2018 [id number] Mammogram Completed 10/21/2017 [id number] Mammogram Completed 07/28/2016 [id number] Mammogram Completed Medical Devices Description No Information Available Encounters Type Date Location Provider Dx Diagnosis Office Visit 03/22/2019 [facility] Internal Rosario Armenta, I10 Essential ( primary) 8:50a Mynor Albrecht M.D. hypertension Z23 Encounter for immunization Office Visit 02/10/2019 10:00a Surgical Tia Sood N64.4 [facility] Office Visit 02/01/2019 9:50a [facility] Internal Rosario J45.40 Moderate persistent Mynor Armenta M.D. asthma, uncomplicated I10 Essential (primary) hypertension Office Visit 01/11/2019 12:10p [facility] Internal Rosario J45.41 Moderate persistent Mynor Armenta M.D. asthma with (acute) Ccmob exacerbation R07.89 Other chest pain R07.0 Pain in throat D50.9 Iron deficiency anemia, unspecified R03.0 Elevated blood-pressure reading, w/o diagnosis of htn Office Visit 01/03/2019 8:10a [facility] Internal Rosario J45.41 Moderate persistent Medicine Valencia Armenta M.D. asthma with (acute) Ccmob exacerbation R73.01 Impaired fasting glucose F43.0 Acute stress reaction Z68.39 Body mass index (BMI) 39.0-39.9, adult Assessments Date Code Description Provider 03/25/2019 Z23 Encounter for immunization Nurse Visit A 03/22/2019 I10 Essential (primary) hypertension Rosario Armenta M.D. 03/22/2019 Z23 Encounter for immunization Rosario Armenta M.D. 03/03/2019 I10 Essential (primary) hypertension Nurse Visit A 02/16/2019 I10 Essential (primary) hypertension Nurse Visit A 02/15/2019 R07.9 Chest pain, unspecified Tawana Nolan M.D. 02/15/2019 R07.89 Other chest pain Rosario Armenta M.D. 02/10/2019 N64.4 Mastodynia Tia Hurtado MD 02/01/2019 J45.40 Moderate persistent asthma, uncomplicated Rosario Armenta M.D. 02/01/2019 I10 Essential (primary) hypertension Rosario Armenta M.D. 01/11/2019 J45.41 Moderate persistent asthma with (acute) Rosario Armenta M.D. exacerbation 01/11/2019 R07.89 Other chest pain Rosario Armenta M.D. 01/11/2019 R07.0 Pain in throat Rosario Armenta M.D. 01/11/2019 D50.9 Iron deficiency anemia, unspecified Rosario Armenta M.D. 01/11/2019 R03.0 Elevated blood-pressure reading, without Rosario Armenta M.D. diagnosis of hypert 01/03/2019 J45.41 Moderate persistent asthma with (acute) Rosario Armenta M.D. exacerbation 01/03/2019 R73.01 Impaired fasting glucose Rosario Armenta M.D. 01/03/2019 F43.0 Acute stress reaction Rosario Armenta M.D. 01/03/2019 Z68.39 Body mass index (BMI) 39.0-39.9, adult Rosario Armenta M.D. Plan of Treatment Future Appointment(s):09/15/2019 1:20 pm - Rosario Armenta M.D. at [facility] Internal Medicine - [facility]08/ - Rosario Armenta M.D.I10 Essential (primary ) hypertensionFollow up:6 [id number] Encounter for immunization Functional Status Description No Information Available Mental Status Description No Information Available Referrals Description No Information Available
[2019-04-25 12:06] VITALS: BP 135/83
--- NOTE | 2019-04-25 12:23 | UC ---
Abdominal Pain Female HPI - HPI Summary HPI Summary: Patient is a 48yo female presenting with abdominal pain since last night. She states she gets stomach upset from ibuprofen and lettuce and last night she took one ibuprofen and ate spring mix which she said "did not agree with her." Says she usually is very cautious of what she eats because this has been happening since childhood. She was able to sleep well but when she woke up, the pain was 9/10. She called her doctor and then came here. Her pain here is 4/10 now. Describes the pain as an aching pressure. Denies radiation. Denies back of flank pain. Denies SOB, difficulty breathing, and chest pain. She denies nausea or vomiting. She was able to eat toast and tea this morning. This did not alleviate or exacerbate pain. Position does not affect pain. Tums did not help either. Patient states LMP was 04/11/19. Denies possibility of . Denies history of upper GI bleed or GERD. - History of Current Complaint Chief Complaint: UCAbdominalPain Stated Complaint: ABD PAIN Hx Last Menstrual Period: 09/08/16 Onset/Duration: Sudden Onset Timing: Constant Severity Initially: Mild Pain Intensity: 4 Pain Scale Used: 0-10 Numeric Location: Epigastric Radiates: No Character: Aching, Cramping Alleviating Factor(s): Nothing Associated Signs and Symptoms: Negative: Diaphoresis, Fever, Chest Pain, Back Pain, Constipation, Blood in Stool, Urinary Symptoms, Decreased Appetite, Nausea , Vomiting, Diarrhea Allergies/Adverse Reactions: Allergies Allergy/AdvReac Type Severity Reaction Status Date / Time ibuprofen Allergy Intermediate Nausea Verified 04/25/19 12:06 latex Allergy Intermediate Rash Verified 04/25/19 12:06 avocado Allergy Abdominal Verified 04/25/19 12:06 Pain lettuce Allergy Abdominal Verified 04/25/19 12:06 Pain eggs Allergy Severe Nausea And Uncoded 04/25/19 12:06 Vomiting metal Allergy Severe Rash Uncoded 04/25/19 12:06 Home Medications: Home Medications Amlodipine Besylate [Norvasc] 5 mg PO 04/25/19 [History] PMH/Surg Hx/FS Hx/Imm Hx Cardiovascular History: Hypertension - Surgical History Surgical History: Yes Surgery Procedure, Year, and Place: carpal tunnel right hand 2007. ingrown toenail in left foot - Family History Known Family History: Positive: Cardiac Disease, Hypertension, Respiratory Disease - Social History Alcohol Use: None Substance Use Type: None Smoking Status (MU): Never Smoked Tobacco Have You Smoked in the Last Year: No - Immunization History Most Recent Influenza Vaccination: not 2016/2017 Review of Systems All Other Systems Reviewed And Are Negative: Yes Constitutional: Positive: Negative. Negative: Fever, Chills, Fatigue Skin: Positive: Negative ENT: Positive: Negative Respiratory: Positive: Negative. Negative: Shortness Of Breath, Cough Cardiovascular: Positive: Negative. Negative: Palpitations, Chest Pain Gastrointestinal: Positive: Abdominal Pain. Negative: Vomiting, Diarrhea, Nausea Genitourinary: Positive: Negative. Negative: Dysuria, Hematuria, Frequency Musculoskeletal: Positive: Negative Neurological: Positive: Negative Psychological: Positive: Negative Physical Exam Triage Information Reviewed: Yes Appearance: Well-Appearing, No Pain Distress, Well-Nourished Vital Signs: Initial Vital Signs Temp 97.4 F 04/25/19 12:00 Pulse 77 04/25/19 12:00 Resp 18 04/25/19 12:00 BP 135/83 04/25/19 12:00 Pulse Ox 100 04/25/19 12:00 Lab Results 04/25/19 04/25/19 Range/Units 12:44 12:51 POC Urine Color Yellow POC Urine Clarity Clear POC Urine pH 5.5 (5-9) POC Ur Specif [place] 1.015 (1.010-1.030) POC Urine Protein Negative (Negative) POC Ur Glucose (UA) Negative (Negative) POC Urine Ketones Negative (Negative) POC Urine Blood Negative (Negative) POC Urine Nitrite Negative (Negative) POC Urine Bilirubin Negative (Negative) POC Urine Urobilinogen 0.2 (Negative) POC U Leukocyte Esteras Negative (Negative) POC Ur Test Negative (Negative) Vital Signs Reviewed: Yes Eyes: Positive: Conjunctiva Clear ENT: Positive: Hearing grossly normal Neck: Positive: Supple Respiratory Exam: Normal Respiratory: Positive: Chest non-tender, Lungs clear, Normal breath sounds, No respiratory distress, No accessory muscle use. Negative: Stridor, Wheezing Cardiovascular Exam: Normal Cardiovascular: Positive: RRR. Negative: Tachycardia Abdomen Description: Positive: Soft, Other: - mild tenderness to palpation of epigastric area. negative murphys sign. negative psoas and rovsings sign.. Negative: CVA Tenderness (R), CVA Tenderness (L), Distended, Guarding, McBurney' s Point Tenderness, Peritoneal Signs Bowel Sounds: Positive: Present Neurological: Positive: Alert Psychological: Positive: Age Appropriate Behavior Skin Exam: Normal Abd Pain Female Course/Dx - Course Course Of Treatment: The patient was given one shot of IM toradol here to help alleviate GI aching/ cramping. Informed the patient that it is similar to ibuprofen. Ibuprofen upsets her stomach but I informed her that since it is a shot, she should not have worsening of her GI upset from it because it is not oral. Patient voiced understanding and agreed to try toradol. I also prescribed pepcid which she may use as directed for dyspepsia. I instructed her to eat a bland diet while symptoms persist and to avoid the foods and medications that she knows cause upset. Also told the patient that she may continue tums and pepto bismol as directed for symptoms relief. Instructed her to return or go to ED if symptoms worsen, she experiences fever, n/v/d, SOB, or seer abdominal pain. Patient voiced understanding and agreed to treatment plan. - Differential Dx/Diagnosis Provider Diagnosis: Upper abdominal pain, unspecified Discharge ED - Sign-Out/Discharge Documenting (check all that apply): Patient Departure All imaging exams completed and their final reports reviewed: No Studies - Discharge Plan Condition: Stable Disposition: HOME Prescriptions: Famotidine TAB* [Pepcid 20 MG TAB*] 20 mg PO DAILY PRN #30 tab PRN Reason: Dyspepsia Forms: *Work Release Referrals: Rosario Armenta MD [Primary Care Provider] - If Needed Additional Instructions: You were given one shot of toradol today to help alleviate your stomach pain. You were also given a prescription for pepcid that you may use as directed for symptomatic relief. As discussed, eat a bland diet, such as bread, apples, and rice while symptoms are present. Drink plenty of fluids and avoid foods and medications that you know cause your stomach upset. You may also continue to use tums, chris seltzer, and pepto bismol for symptomatic relief. Follow up with your primary care physician if your symptoms return or persist. If your symptoms do not resolve or you develop fever, vomiting, diarrhea, worsening abdominal pain, or are unable to keep fluids down, go to the emergency department. - Billing Disposition and Condition Condition: STABLE Disposition: Home
[2019-04-25] MEDS ORDERED: Ketorolac *IM* INJ* 60 MG/2 ML VIAL IM ONE (12:55)
== END 2019-04-25 13:28 | disposition home or self-care (01) ==
LOC: UCEAST 11:41
DX: R10.10 Upper abdominal pain, unspecified (principal); R10.816 Epigastric abdominal tenderness; I10 Essential (primary) hypertension; Z88.8 Allergy status to other drugs, medicaments and biological substances; Z91.040 Latex allergy status; Z91.018 Allergy to other foods; Z91.012 Allergy to eggs; Z91.09 Other allergy status, other than to drugs and biological substances; Z79.899 Other long term (current) drug therapy
CPT/HCPCS: 81003; 84702; 96372; 99212; G0463; J1885